=== PATIENT | male | born 1955 | race Caucasian/White ===

== ENCOUNTER 2018-10-25 14:04 | Emergency (ER) | payer BC, MEDICARE, OTHER ==
[~2018-10-25] VITALS: Ht 182.9 cm; Wt 80.7 kg
[~2018-10-25 14:04] MED LIST: Oxycodone Hcl/Acetaminophen PO
--- NOTE | 2018-10-25 14:24 | PHYS DOC ---
Past Medical History Past Medical History: No Pertinent History Past Surgical History: Other Additional Past Surgical Histo: colonoscopy Alcohol Use: Rarely Drug Use: None Adult General Chief Complaint Chief Complaint: LOWER EXTREMITY SWELLING HPI HPI Patient is a 63 year old male with history of smoking who presents today complaining of tightness to the left calf that his had for the last 6 days. Patient denies any known injury, patient denies any recent hospitalization, denies any use of hormones, denies any shortness of breath. Patient states he works at [employer] two of his work mates are off work due to medical reasons and he has hard to do more work including alot more walking and that seems to trigger the tightness in his left calf. Patient states symptoms are relieved when he is not moving as much. He states he went to urgent care and they sent him to the ED. Denies any personal family history of DVTs. Review of Systems Review of Systems Constitutional: Denies fever or chills [] Eyes: Denies change in visual acuity, redness, or eye pain [] HENT: Denies nasal congestion or sore throat [] Respiratory: Denies cough or shortness of breath [] Cardiovascular: No additional information not addressed in HPI [] GI: Denies abdominal pain, nausea, vomiting, bloody stools or diarrhea [] : Denies dysuria or hematuria [] Musculoskeletal: Reports left calf tightness Integument: Denies rash or skin lesions [] Neurologic: Denies headache, focal weakness or sensory changes [] All other systems were reviewed and found to be within normal limits, except as documented in this note. Allergies Allergies Allergies Coded Allergies Type Severity Reaction Last Updated Verified Penicillins Allergy Intermediate 04/13/14 No Physical Exam Physical Exam Constitutional: Well developed, well nourished, no acute distress, non-toxic appearance. [] HENT: Normocephalic, atraumatic, bilateral external ears normal, oropharynx moist, no oral exudates, nose normal. [] Eyes: PERRLA, EOMI, conjunctiva normal, no discharge. [] Neck: Normal range of motion, no tenderness, supple, no stridor. [] Cardiovascular:Heart rate regular rhythm, no murmur [] Lungs & Thorax: Bilateral breath sounds clear to auscultation [] Abdomen: Bowel sounds normal, soft, no tenderness, no masses, no pulsatile masses. [] Skin: Warm, dry, no erythema, no rash. [] Back: No tenderness, no CVA tenderness. [] Extremities: Bilateral lower extremities with no obvious deformity, no difference in calf size between the left and right side. Left calf with no redness no warmth, negative Homans sign to the left lower extremity. Full range of motion to the left lower extremity. +2 bilateral pedal pulses. Cap refill less than 2 seconds bilateral pulses. Neurologic: Alert and oriented X 3, normal motor function, normal sensory function, no focal deficits noted. [] Psychologic: Affect normal, judgement normal, mood normal. [] Current Patient Data Vital Signs Vital Signs Date Time Temp Pulse Resp B/P (MAP) Pulse Ox O2 Delivery O2 Flow Rate FiO2 10/25/18 16:00 76 18 139/71 (93) 100 Room Air 10/25/18 14:22 98.4 98.4 Lab Values Laboratory Tests Test 10/25/18 14:34 White Blood Count 8.2 x10^3/uL (4.0-11.0) Red Blood Count 4.56 x10^6/uL (4.30-5.70) Hemoglobin 15.4 g/dL (13.0-17.5) Hematocrit 44.6 % (39.0-53.0) Mean Corpuscular Volume 98 fL (79-100) Mean Corpuscular Hemoglobin 34 pg (25-35) Mean Corpuscular Hemoglobin Concent 35 g/dL (31-37) Red Cell Distribution Width 13.3 % (11.5-14.5) Platelet Count 180 x10^3/uL (140-400) Neutrophils (%) (Auto) 72 % (31-73) Lymphocytes (%) (Auto) 16 % (24-48) L Monocytes (%) (Auto) 10 % (0-9) H Eosinophils (%) (Auto) 1 % (0-3) Basophils (%) (Auto) 1 % (0-3) Neutrophils # (Auto) 5.9 x10^3uL (1.8-7.7) Lymphocytes # (Auto) 1.3 x10^3/uL (1.0-4.8) Monocytes # (Auto) 0.9 x10^3/uL (0.0-1.1) Eosinophils # (Auto) 0.1 x10^3/uL (0.0-0.7) Basophils # (Auto) 0.1 x10^3/uL (0.0-0.2) Sodium Level 139 mmol/L (136-145) Potassium Level 4.1 mmol/L (3.5-5.1) Chloride Level 107 mmol/L (98-107) Carbon Dioxide Level 25 mmol/L (21-32) Anion Gap 7 (6-14) Blood Urea Nitrogen 21 mg/dL (8-26) Creatinine 1.3 mg/dL (0.7-1.3) Estimated GFR (Cockcroft-Gault) 55.4 Glucose Level 100 mg/dL (70-99) H Calcium Level 9.1 mg/dL (8.5-10.1) GU-Ttl-Y-Type Natriuretic Peptide 73 pg/mL (0-124) Laboratory Tests 10/25/18 14:34 Laboratory Tests 10/25/18 14:34 EKG EKG [] Radiology/Procedures Radiology/Procedures []PROCEDURE: VENOUS LOWER EXTREMITY LEFT Left lower extremity venous Doppler ultrasound History: DX: Left leg pain x 6 days (lateral Calf pain) Comparison: None. Procedure: Color flow Doppler, Doppler spectral analysis, and 2D images are obtained with and without compression in the area of the common femoral vein, superficial femoral vein - femoral vein junction, main femoral vein (superficial femoral vein) and popliteal vein. Veins of the proximal calf are also imaged. Findings: There is normal color flow, augmentation, and compressibility of all visualized vein segments. No evidence of deep venous thrombus is present. IMPRESSION: No evidence of left lower extremity deep venous thrombosis. Electronically signed by: Simone Hayes MD (10/25/2018 2:43 PM) [facility] DICTATED and SIGNED BY: SIMONE HAYES MD DATE: 10/25/18 1442 Course & Med Decision Making Course & Med Decision Making Pertinent Labs and Imaging studies reviewed. (See chart for details) This is a 63-year-old male patient presenting to the ED today complaining of tightness to his left calf that has been going on for 6 days, no known injury but states he has had to work her harder especially walking during work because several work mates are out due to illness. Patient is employed at the [employer]. Patient has history of smoking, advised to consider smoking cessation. CBC, BMP with no acute findings, BNP-73, venous Doppler of the left lower extremity is negative for any acute findings. Vitals on arrival to the ED temperature 98.4 heart rate 80. Respirations 16 on room air blood pressure 147/ 76 O2 sats 99%. Patient is in no distress. Among differentials include sprained or strained LLE , overuse syndrome LLE, PVD though he is neurovascularly intact. Patient was discharged with a work note for 3 days per his request. Ice elevation encouraged. Given prescription for Voltaren. Follow-up with PCP in one week Staff Physician Addendum: I was working in the ER during the course of this patient's visit. I was available for consultation as needed, but I was not directly involved in the care of this patient. Dragon Disclaimer Dragon Disclaimer This electronic medical record was generated, in whole or in part, using a voice recognition dictation system. Departure Departure Impression: Primary Impression: Smoking addiction Additional Impression: Strain of calf muscle Disposition: HOME, SELF-CARE Condition: STABLE (11) Referrals: NO PCP (PCP) follow up in one week ADOLFO MAYFIELD MD Patient Instructions: Muscle Strain, [id number], Smoking Cessation Additional Instructions: You were evaluated in the emergency room for left Calf tightness. Try to rest, ice the affected extremity, keep it elevated as tolerated. Use the prescribed medications as ordered. Follow-up with your doctor or the provided specialist in 1-2 weeks. Scripts Diclofenac Sodium (VOLTAREN) 100 Gm Gel..gram. 1 GM TP QID, #100 GM 2 Refills Prov: MANUEL POWELL APRN 10/25/18 Problem Qualifiers Additional Impression: Strain of calf muscle Encounter type: initial encounter Laterality: left Qualified Codes: S86.812A - Strain of other muscle(s) and tendon(s) at lower leg level, left leg , initial encounter MANUEL POWELL APRN Oct 25, 2018 14:24 JENNY MASSEY MD Oct 25, 2018 17:57
[2018-10-25 14:44] LABS: BASO # 0.1 x10^3/uL (0.0-0.2); BASO % 1 % (0-3); EOS # 0.1 x10^3/uL (0.0-0.7); EOS % 1 % (0-3); HEMATOCRIT 44.6 % (39.0-53.0); HEMOGLOBIN 15.4 g/dL (13.0-17.5); LYMPH # 1.3 x10^3/uL (1.0-4.8); LYMPH % 16 % (24-48); MEAN CORPUSCULAR HEMOGLOBIN 34 pg (25-35); MEAN CORPUSCULAR HGB CONC 35 g/dL (31-37); MEAN CORPUSCULAR VOLUME 98 fL (79-100); MONO # 0.9 x10^3/uL (0.0-1.1); MONO % 10 % (0-9); NEUT # 5.9 x10^3uL (1.8-7.7); NEUT % 72 % (31-73); PLATELET COUNT 180 x10^3/uL (140-400); RED BLOOD COUNT 4.56 x10^6/uL (4.30-5.70); RED CELL DISTRIBUTION WIDTH 13.3 % (11.5-14.5); WHITE BLOOD COUNT 8.2 x10^3/uL (4.0-11.0)
--- NOTE | 2018-10-25 14:47 | RAD ---
Left lower extremity venous Doppler ultrasound History: DX: Left leg pain x 6 days (lateral Calf pain) Comparison: None. Procedure: Color flow Doppler, Doppler spectral analysis, and 2D images are obtained with and without compression in the area of the common femoral vein, superficial femoral vein - femoral vein junction, main femoral vein (superficial femoral vein) and popliteal vein. Veins of the proximal calf are also imaged. Findings: There is normal color flow, augmentation, and compressibility of all visualized vein segments. No evidence of deep venous thrombus is present. IMPRESSION: No evidence of left lower extremity deep venous thrombosis. Electronically signed by: Simone Hayes MD (10/25/2018 2:43 PM) [facility]
[2018-10-25 15:00] LABS: CALCIUM 9.1 mg/dL (8.5-10.1); CREATININE 1.3 mg/dL (0.7-1.3); GFR 55.4; POTASSIUM 4.1 mmol/L (3.5-5.1)
[2018-10-25] MEDS ORDERED: DICL100G18 TP (15:38)
[2018-10-25 16:00] VITALS: BP 139/71
== END 2018-10-25 16:13 | disposition home or self-care (01) ==
LOC: ER 14:04
DX: S86.812A Strain of other muscle(s) and tendon(s) at lower leg level, left leg, initial encounter (principal); Z87.891 Personal history of nicotine dependence; Z88.0 Allergy status to penicillin; X50.9XXA Other and unspecified overexertion or strenuous movements or postures, initial encounter; Y93.89 Activity, other specified; Y92.89 Other specified places as the place of occurrence of the external cause; Y99.0 Civilian activity done for income or pay
CPT/HCPCS: 36415; 80048; 83880; 85025; 93971; 99284

== ENCOUNTER 2021-06-14 07:15 | Inpatient (IN) | payer MEDICARE, BC ==
[~2021-06-14] VITALS: Ht 182.9 cm; Wt 90.9 kg
[~2021-06-14 07:15] MED LIST changes: +DICL100G54 TP
[2021-06-14] MEDS ORDERED: ACETAMINOPHEN 500 MG TABLET PO ONE (07:30)
[2021-06-14] MEDS ORDERED: IV NORMAL SALINE 1000ML BAG 1,000 ML IV ONE (07:30)
[2021-06-14 07:53] LABS: BASO # 0.1 x10^3/uL (0.0-0.2); BASO % 0 % (0-3); EOS % 0 % (0-3); HEMATOCRIT 43.7 % (39.0-53.0); HEMOGLOBIN 15.3 g/dL (13.0-17.5); LYMPH # 1.1 x10^3/uL (1.0-4.8); LYMPH % 8 % (24-48); MEAN CORPUSCULAR HEMOGLOBIN 34 pg (25-35); MEAN CORPUSCULAR HGB CONC 35 g/dL (31-37); MEAN CORPUSCULAR VOLUME 97 fL (79-100); MONO # 0.4 x10^3/uL (0.0-1.1); MONO % 3 % (0-9); NEUT # 11.9 x10^3/uL (1.8-7.7); NEUT % 88 % (31-73); PLATELET COUNT 191 x10^3/uL (140-400); RED BLOOD COUNT 4.53 x10^6/uL (4.30-5.70); RED CELL DISTRIBUTION WIDTH 13.6 % (11.5-14.5); WHITE BLOOD COUNT 13.4 x10^3/uL (4.0-11.0)
[2021-06-14] MEDS ORDERED: ONDANSETRON PF 4 MG/2 ML VIAL. IVP ONE (08:00)
[2021-06-14] MEDS ORDERED: VANCOMYCIN PER PHARMACY MC PRN ×2 (08:00→11:30)
[2021-06-14] MEDS ORDERED: VANCOMYCIN 1.5 GM in IV NORMAL SALINE 500ML BAG 500 ML IV ONE (08:00)
[2021-06-14 08:01] LABS: CREATININE 1.9 mg/dL (0.7-1.3); GFR 35.4; POTASSIUM 4.9 mmol/L (3.5-5.1)
--- NOTE | 2021-06-14 08:04 | PHYS DOC ---
Past Medical History Past Medical History: Pancreatitis Past Surgical History: Appendectomy, Tonsillectomy, Other Additional Past Surgical Histo: colonoscopy Smoking Status: Current Every Day Smoker Alcohol Use: Rarely Drug Use: None General Adult EDM: Chief Complaint: NAUSEA/VOMITING/DIARRHEA HPI: HPI: 66-year-old male presents to the emergency department with various complaints including fever, chills, fatigue, cough, nausea, vomiting, diarrhea for the past 24 hours which have been getting worse. He reports 11 episodes of vomiting and diarrhea that has been nonbloody and nonbilious. The patient endorses a fever since this morning that he has not treated at home. He has been vaccinated for COVID-19, denies any obvious sick contacts. He also states that he feels extremely nauseated, very thirsty and dehydrated. He does admit to some shortness of breath. The patient denies chest pain, abdominal pain, urinary sy mptoms, recent trauma, or any other complaints. He does have a penicillin allergy, which she describes as syncope. Review of Systems: Review of Systems: Constitutional: Admits to fever and chills. Eyes: Denies change in vision, pain. HENT: Denies congestion or sore throat. Respiratory: Admits to cough and shortness of. Cardiovascular: Denies chest pain or edema. GI: Admits to nausea vomiting diarrhea, denies abdominal pain. : Denies change in urination, dysuria. Musculoskeletal: Denies extremity pain, or trauma. Skin: Denies rash, skin change. Neurologic: Denies headache, focal weakness. Psychiatric: Denies depression or anxiety. All other systems reviewed as negative except for what was mentioned in the HPI. Heart Score: C/O Chest Pain: No Current Medications: Current Medications Medications (Trade) Dose Ordered Sig/[facility] Start Time Stop Time Status Last Admin Dose Admin Acetaminophen (Tylenol) 1,000 mg 1X ONCE 06/14/21 07:30 06/14/21 07:34 DC Levofloxacin/ Dextrose 150 ml @ 100 mls/hr 1X ONCE 06/14/21 08:00 06/14/21 09:29 Sodium Chloride 1,000 ml @ 2,000 mls/hr 1X ONCE 06/14/21 07:30 06/14/21 07:59 Vancomycin HCl (Vanco Per Pharmacy) 1 each PRN DAILY PRN 06/14/21 08:00 UNV Allergies: Allergies: Allergies Coded Allergies Type Severity Reaction Last Updated Verified Penicillins Allergy Intermediate 04/13/14 No Physical Exam: PE: Constitutional: No acute distress, ill appearance. Febrile to touch. HENT: Atraumatic, bilateral external ears normal, nose normal. Eyes: PERRLA, EOMI, conjunctiva normal, no discharge. Neck: Normal range of motion, supple, no stridor. Cardiovascular: Heart rate regular rhythm. 2+ radial pulses Lungs & Thorax: No respiratory distress, symmetrical expansion. Bilateral breath sounds clear to auscultation Skin: Warm, dry. Extremities: No tenderness, no cyanosis, ROM intact, no edema. Neurologic: Alert and oriented X 3, normal motor function, normal sensory function, no focal deficits noted. Non ataxic gait. GCS 15. Psychologic: Affect normal, judgment normal, mood normal. Current Patient Data: Labs: Laboratory Tests Test 06/14/21 07:38 06/14/21 07:39 White Blood Count 13.4 x10^3/uL (4.0-11.0) Red Blood Count 4.53 x10^6/uL (4.30-5.70) Hemoglobin 15.3 g/dL (13.0-17.5) Hematocrit 43.7 % (39.0-53.0) Mean Corpuscular Volume 97 fL (79-100) Mean Corpuscular Hemoglobin 34 pg (25-35) Mean Corpuscular Hemoglobin Concent 35 g/dL (31-37) Red Cell Distribution Width 13.6 % (11.5-14.5) Platelet Count 191 x10^3/uL (140-400) Neutrophils (%) (Auto) 88 % (31-73) Lymphocytes (%) (Auto) 8 % (24-48) Monocytes (%) (Auto) 3 % (0-9) Eosinophils (%) (Auto) 0 % (0-3) Basophils (%) (Auto) 0 % (0-3) Neutrophils # (Auto) 11.9 x10^3/uL (1.8-7.7) Lymphocytes # (Auto) 1.1 x10^3/uL (1.0-4.8) Monocytes # (Auto) 0.4 x10^3/uL (0.0-1.1) Eosinophils # (Auto) 0.0 x10^3/uL (0.0-0.7) Basophils # (Auto) 0.1 x10^3/uL (0.0-0.2) Sodium Level 142 mmol/L (136-145) Potassium Level 4.9 mmol/L (3.5-5.1) Chloride Level 108 mmol/L (98-107) Carbon Dioxide Level 22 mmol/L (21-32) Anion Gap 12 (6-14) Blood Urea Nitrogen 18 mg/dL (8-26) Creatinine 1.9 mg/dL (0.7-1.3) Estimated GFR (Cockcroft-Gault) 35.4 BUN/Creatinine Ratio 9 (6-20) Glucose Level 158 mg/dL (70-99) Lactic Acid Level 2.2 mmol/L (0.4-2.0) Calcium Level 9.0 mg/dL (8.5-10.1) Total Bilirubin 0.6 mg/dL (0.2-1.0) Aspartate Amino Transf (AST/SGOT) 49 U/L (15-37) Alanine Aminotransferase (ALT/SGPT) 68 U/L (16-63) Alkaline Phosphatase 79 U/L (46-116) Total Protein 7.4 g/dL (6.4-8.2) Albumin 3.6 g/dL (3.4-5.0) Albumin/Globulin Ratio 0.9 (1.0-1.7) Lipase 306 U/L (73-393) Influenza Type A Antigen Negative (NEGATIVE) Influenza Type B Antigen Negative (NEGATIVE) SARS-CoV-2 Antigen (Rapid) Negative (NEGATIVE) Vital Signs: Vital Signs Date Time Temp Pulse Resp B/P (MAP) Pulse Ox O2 Delivery O2 Flow Rate FiO2 06/14/21 07:24 103.1 114 24 168/82 (93) 98 Room Air 103.1 EKG: EKG: Sinus tachycardia rate of 110, no ST-T wave changes, no ectopic beats, normal axis, normal AL, QRS, and QTc intervals. Impression: Sinus tachycardia, no STEMI. Interpreted by meJenny D.O. Radiology/Procedures: Radiology/Procedures: PROCEDURE: CHEST AP ONLY XR CHEST 1V History: Reason: COUGH / Spl. Instructions: / History: Comparison: None. Findings: Right upper lobe consolidation. No pleural effusion. No pneumothorax. Normal heart size. Impression: 1. Right upper lobe consolidation, concerning for pneumonia. Recommend follow- up to ensure resolution. Electronically signed by: Jose Sanchez DO (06/14/2021 8:07 AM) Course & Med Decision Making: Course & Med Decision Making Patient with obvious fever on exam, tachycardia, and vague nonspecific viral type symptoms despite being vaccinated for COVID-19. Sepsis bundle was initiated including lactic acid, blood cultures, fluids. Patient was also given antipyretic (Tylenol), nausea medication for symptom relief. Labs acquired. EKG obtained. Antibiotics were ordered. Patient was given Levaquin, vancomycin due to penicillin allergy. Chest x-ray appears to have a right upper lobe consolidation consistent with pneumonia which fits his clinical presentation. Patient reassessed at 0830, capillary refill unchanged, heart rate down to 110. Patient still complains of thirst and was given a jug of water to drink. Disclosed disposition of admission to the patient who is amenable to this plan. Patient will be admitted to the hospitalist Dr. Beckman. Patient placed on NC for comfort. Departure Departure Impression: Primary Impression: Sepsis due to pneumonia Disposition: ADMITTED INPATIENT Admitting Physician: RUTH (Karuna) Condition: STABLE Referrals: FELECIA SWANN MD (PCP) JENNY RUBIO DO Jun 14, 2021 08:03
[2021-06-14 08:07] LABS: ALBUMIN 3.6 g/dL (3.4-5.0); ALBUMIN/GLOBULIN RATIO 0.9 (1.0-1.7); TOTAL BILIRUBIN 0.6 mg/dL (0.2-1.0); TOTAL PROTEIN 7.4 g/dL (6.4-8.2)
--- NOTE | 2021-06-14 08:10 | RAD ---
XR CHEST 1V History: Reason: COUGH / Spl. Instructions: / History: Comparison: None. Findings: Right upper lobe consolidation. No pleural effusion. No pneumothorax. Normal heart size. Impression: 1. Right upper lobe consolidation, concerning for pneumonia. Recommend follow-up to ensure resolutio n. Electronically signed by: Jose Sanchez DO (06/14/2021 8:07 AM) [id number]
[2021-06-14 08:16] LABS: INFLUENZA A PATIENT NEGATIVE (NEGATIVE); INFLUENZA B PATIENT NEGATIVE (NEGATIVE)
[2021-06-14 08:29] LABS: BILIRUBIN,URINE NEGATIVE (NEG); CLARITY,URINE CLEAR; COLOR,URINE YELLOW; NITRITE,URINE NEGATIVE (NEG); PROTEIN,URINE NEGATIVE (NEG-TRACE); UROBILINOGEN,URINE 0.2 mg/dL (0.2 mg/dL)
[2021-06-14 08:32] LABS: % BANDS 9 % (0-9); % LYMPHS 7 % (24-48); % MONOS 3 % (0-10); % SEGS 81 % (35-66); PLT ESTIMATE ADEQUATE (ADEQUATE)
[2021-06-14 08:37] LABS: BACTERIA,URINE 0 /HPF (0-FEW); WBC,URINE OCC /HPF (0-4)
--- NOTE | 2021-06-14 09:09 | PDOC1 ---
History and Physical Date of Admission Date of Admission DATE: 06/14/21 TIME: 09:08 Identification/Chief Complaint Chief Complaint sob, fever, cough onset today History of Present Illness History of Present Illness 66-year-old male presented to the emergency department with symptoms including fever, chills, fatigue, cough, nausea, vomiting, diarrhea for the past 24 hours which have been getting worse. 11 episodes of vomiting and diarrhea that has been nonbloody and nonbilious. noted fever since this morning that he has not treated at home. was vaccinated for COVID-19, states that he feels extremely nauseated, very thirsty and dehydrated. cxr c/w rul infiltrate some shortness of breath. stopped smoking last year denies chest pain, abdominal pain, urinary symptoms, recent trauma, or any other complaints. penicillin allergy, which he describes as syncope. Past Medical History Past Medical History Past Medical History Past Medical History: Pancreatitis Past Surgical History: Appendectomy, Tonsillectomy, Other Additional Past Surgical Histo: colonoscopy Smoking Status: stopped 2019 Alcohol Use: Rarely Drug Use: None FHX COPD Cardiovascular: No pertinent hx Pulmonary: No pertinent hx, Bronchitis, COPD Musculoskeletal: Weakness Renal/: No pertinent hx Endocrine: No pertinent hx Dermatology: No pertinent hx Past Surgical History Past Surgical History: Other Family History Family History: High Cholestrol, Hypertension Social History Smoke: Quit ALCOHOL: rare Drugs: None Current Problem List Problem List Problems Medical Problems: (1) Sepsis due to pneumonia Status: Acute Current Medications Current Medications Current Medications Acetaminophen (Tylenol) 1,000 mg 1X ONCE PO Last administered on 06/14/21at 08:09; Start 06/14/21 at 07:30; Stop 06/14/21 at 07:34; Status DC Sodium Chloride 1,000 ml @ 2,000 mls/hr 1X ONCE IV Last administered on 06/14/21at 08:10; Start 06/14/21 at 07:30; Stop 06/14/21 at 07:59; Status DC Levofloxacin/ Dextrose 150 ml @ 100 mls/hr 1X ONCE IV Last administered on 06/14/21at 08:10; Start 06/14/21 at 08:00; Stop 06/14/21 at 09:29 Vancomycin HCl (Vanco Per Pharmacy) 1 each PRN DAILY PRN MC SEE COMMENTS; Start 06/14/21 at 08:00 Vancomycin HCl 1.5 gm/Sodium Chloride 500 ml @ 250 mls/hr 1X ONCE IV ; Start 06/14/21 at 08:00; Stop 06/14/21 at 09:59 Ondansetron HCl (Zofran) 4 mg 1X ONCE IVP Last administered on 06/14/21at 08:07; Start 06/14/21 at 08:00; Stop 06/14/21 at 08:01; Status DC Active Scripts Active Voltaren (Diclofenac Sodium) 100 Gm Gel..gram. 1 Gm TP QID Reported No Known Medications Prior To Admisstion (Info) Each 1 Each Allergies Allergies: Coded Allergies: Penicillins (Unverified Allergy, Intermediate, 04/13/14) ROS General: YES: Chills, Fatigue, Malaise, Appetite PSYCHOLOGICAL ROS: No: Anxiety, Behavioral Disorder, Concentration difficultie, Decreased libido, Depression, Disorientation, Hallucinations, Hostility, Irritablity, Memory difficulties, Mood Swings, Obsessive thoughts, Physical abuse, Sexual abuse, Sleep disturbances, Suicidal ideation, Other Eyes: No Blurry vision, No Decreased vision, No Double vision, No Dry eyes, No Excessive tearing, No Eye Pain, No Itchy Eyes, No Loss of vision, No Photophobia, No Scotomata, No Uses contacts, No Uses glasses, No Other HEENT: No: Heacaches, Visual Changes, Hearing change, Nasal congestion, Nasal discharge, Oral lesions, Sinus pain, Sore Throat, Epistaxis, Sneezing, Snoring, Tinnitus, Vertigo, Vocal changes, Other ALLERGY AND IMMUNOLOGY: YES: Hives; No: Insect Bite Sensitivity, Itchy/Watery Eyes, Nasal Congestion, Post Nasal Drip, Seasonal Allergies, Other Hematological and Lymphatic: No: Bleeding Problems, Blood Clots, Blood Transfusions, Brusing, Night Sweats, Pallor, Swollen Lymph Nodes, Other ENDOCRINE: No: Breast Changes, Galactorrhea, Hair Pattern Changes, Hot Flashes, Malaise/lethargy, Mood Swings, Palpitations, Polydipsia/polyuria, Skin Changes, Temperature Intolerance, Unexpected Weight Changes, Other Breast: No New/Changing Breast Lumps, No Nipple changes, No Nipple discharge, No Other Respiratory: YES: Cough, Shortness of breath, SOB with excertion, Sputum Changes; No: Hemoptysis, Orthopnea, Pleuritic Pain, Stridor, Tachypnea, Wheezing, Other Cardiovascular: No Chest Pain, No Palpitations, No Orthopnea, No Paroxysmal Noc. Dyspnea, No Edema, No Lt Headedness, No Other Gastrointestinal: Yes Nausea, Yes Vomiting; No Abdominal Pain, No Diarrhea, No Constipation, No Melena, No Hematochezia, No Other Genitourinary: YES Frequency; No Dysuria, No Incontinence, No Hematuria, No Retention, No Discharge, No Urgency, No Pain, No Flank Pain, No Other, No , No , No , No , No , No , No Musculoskeletal: No Gait Disturbance, No Joint Pain, No Joint Stiffness, No Joint Swelling, No Muscle Pain, No Muscular Weakness, No Pain In:, No Swelling In:, No Other Neurological: No Behavorial Changes, No Bowel/Bladder ControlChng, No Confusion, No Dizziness, No Gait Disturbance, No Headaches, No Impaired Coord/balance, No Memory Loss, No Numbness/Tingling, No Seizures, No Speech Problems, No Tremors, No Visual Changes, No Weakness, No Other Skin: Yes Dry Skin; No Eczema, No Hair Changes, No Lumps, No Mole Changes, No Mottling, No Nail Changes, No Pruritus, No Rash, No Skin Lesion Changes, No Other, No Acne Physical Exam Physical Exam HENT: Atraumatic, bilateral external ears normal, nose normal. Eyes: PERRLA, EOMI, conjunctiva normal, no discharge. Neck: Normal range of motion, supple, no stridor. Cardiovascular: Heart rate regular rhythm. 2+ radial pulses Lungs & Thorax: No respiratory distress, symmetrical expansion. Bilateral breath sounds clear to auscultation Skin: Warm, dry. Extremities: No tenderness, no cyanosis, ROM intact, no edema. Neurologic: Alert and oriented X 3, normal motor function, normal sensory function, no focal deficits noted. Non ataxic gait. GCS 15. Psychologic: Affect normal, judgment normal, mood normal. General: Alert, Oriented X3, Cooperative, mild distress HEENT: EOMI, Mucous membr. moist/pink Lungs: Other (rul crackles) Heart: RRR Breasts: Not examined Abdomen: Normal bowel sounds, Soft, Other (obese) PELVIC: Examination not indicated Extremities: No cyanosis Neuro: Normal speech, Strength at 5/5 X4 ext, Cranial nerves 3-12 NL Psych/Mental Status: Mental status NL, Mood NL Vitals Vitals Vital Signs Date Time Temp Pulse Resp B/P (MAP) Pulse Ox O2 Delivery O2 Flow Rate FiO2 06/14/21 08:32 112 20 121/61 (81) 91 Room Air 06/14/21 07:24 103.1 103.1 Labs Labs Laboratory Tests Test 06/14/21 07:38 06/14/21 07:39 06/14/21 08:20 White Blood Count 13.4 x10^3/uL (4.0-11.0) Red Blood Count 4.53 x10^6/uL (4.30-5.70) Hemoglobin 15.3 g/dL (13.0-17.5) Hematocrit 43.7 % (39.0-53.0) Mean Corpuscular Volume 97 fL (79-100) Mean Corpuscular Hemoglobin 34 pg (25-35) Mean Corpuscular Hemoglobin Concent 35 g/dL (31-37) Red Cell Distribution Width 13.6 % (11.5-14.5) Platelet Count 191 x10^3/uL (140-400) Neutrophils (%) (Auto) 88 % (31-73) Lymphocytes (%) (Auto) 8 % (24-48) Monocytes (%) (Auto) 3 % (0-9) Eosinophils (%) (Auto) 0 % (0-3) Basophils (%) (Auto) 0 % (0-3) Neutrophils # (Auto) 11.9 x10^3/uL (1.8-7.7) Lymphocytes # (Auto) 1.1 x10^3/uL (1.0-4.8) Monocytes # (Auto) 0.4 x10^3/uL (0.0-1.1) Eosinophils # (Auto) 0.0 x10^3/uL (0.0-0.7) Basophils # (Auto) 0.1 x10^3/uL (0.0-0.2) Segmented Neutrophils % 81 % (35-66) Band Neutrophils % 9 % (0-9) Lymphocytes % 7 % (24-48) Monocytes % 3 % (0-10) Platelet Estimate Adequate (ADEQUATE) Sodium Level 142 mmol/L (136-145) Potassium Level 4.9 mmol/L (3.5-5.1) Chloride Level 108 mmol/L (98-107) Carbon Dioxide Level 22 mmol/L (21-32) Anion Gap 12 (6-14) Blood Urea Nitrogen 18 mg/dL (8-26) Creatinine 1.9 mg/dL (0.7-1.3) Estimated GFR (Cockcroft-Gault) 35.4 BUN/Creatinine Ratio 9 (6-20) Glucose Level 158 mg/dL (70-99) Lactic Acid Level 2.2 mmol/L (0.4-2.0) Calcium Level 9.0 mg/dL (8.5-10.1) Total Bilirubin 0.6 mg/dL (0.2-1.0) Aspartate Amino Transf (AST/SGOT) 49 U/L (15-37) Alanine Aminotransferase (ALT/SGPT) 68 U/L (16-63) Alkaline Phosphatase 79 U/L (46-116) Total Protein 7.4 g/dL (6.4-8.2) Albumin 3.6 g/dL (3.4-5.0) Albumin/Globulin Ratio 0.9 (1.0-1.7) Lipase 306 U/L (73-393) Influenza Type A Antigen Negative (NEGATIVE) Influenza Type B Antigen Negative (NEGATIVE) SARS-CoV-2 Antigen (Rapid) Negative (NEGATIVE) Urine Collection Type Void Urine Color Yellow Urine Clarity Clear Urine pH 5.0 (<5.0-8.0) Urine Specific [place] 1.010 (1.000-1.030) Urine Protein Negative mg/dL (NEG-TRACE) Urine Glucose (UA) Negative mg/dL (NEG) Urine Ketones (Stick) Negative mg/dL (NEG) Urine Blood Negative (NEG) Urine Nitrite Negative (NEG) Urine Bilirubin Negative (NEG) Urine Urobilinogen Dipstick 0.2 mg/dL (0.2 mg/dL) Urine Leukocyte Esterase Negative (NEG) Urine RBC 1-2 /HPF (0-2) Urine WBC Occ /HPF (0-4) Urine Bacteria 0 /HPF (0-FEW) Laboratory Tests Test 06/14/21 07:38 06/14/21 07:39 06/14/21 08:20 White Blood Count 13.4 x10^3/uL (4.0-11.0) Red Blood Count 4.53 x10^6/uL (4.30-5.70) Hemoglobin 15.3 g/dL (13.0-17.5) Hematocrit 43.7 % (39.0-53.0) Mean Corpuscular Volume 97 fL (79-100) Mean Corpuscular Hemoglobin 34 pg (25-35) Mean Corpuscular Hemoglobin Concent 35 g/dL (31-37) Red Cell Distribution Width 13.6 % (11.5-14.5) Platelet Count 191 x10^3/uL (140-400) Neutrophils (%) (Auto) 88 % (31-73) Lymphocytes (%) (Auto) 8 % (24-48) Monocytes (%) (Auto) 3 % (0-9) Eosinophils (%) (Auto) 0 % (0-3) Basophils (%) (Auto) 0 % (0-3) Neutrophils # (Auto) 11.9 x10^3/uL (1.8-7.7) Lymphocytes # (Auto) 1.1 x10^3/uL (1.0-4.8) Monocytes # (Auto) 0.4 x10^3/uL (0.0-1.1) Eosinophils # (Auto) 0.0 x10^3/uL (0.0-0.7) Basophils # (Auto) 0.1 x10^3/uL (0.0-0.2) Segmented Neutrophils % 81 % (35-66) Band Neutrophils % 9 % (0-9) Lymphocytes % 7 % (24-48) Monocytes % 3 % (0-10) Platelet Estimate Adequate (ADEQUATE) Sodium Level 142 mmol/L (136-145) Potassium Level 4.9 mmol/L (3.5-5.1) Chloride Level 108 mmol/L (98-107) Carbon Dioxide Level 22 mmol/L (21-32) Anion Gap 12 (6-14) Blood Urea Nitrogen 18 mg/dL (8-26) Creatinine 1.9 mg/dL (0.7-1.3) Estimated GFR (Cockcroft-Gault) 35.4 BUN/Creatinine Ratio 9 (6-20) Glucose Level 158 mg/dL (70-99) Lactic Acid Level 2.2 mmol/L (0.4-2.0) Calcium Level 9.0 mg/dL (8.5-10.1) Total Bilirubin 0.6 mg/dL (0.2-1.0) Aspartate Amino Transf (AST/SGOT) 49 U/L (15-37) Alanine Aminotransferase (ALT/SGPT) 68 U/L (16-63) Alkaline Phosphatase 79 U/L (46-116) Total Protein 7.4 g/dL (6.4-8.2) Albumin 3.6 g/dL (3.4-5.0) Albumin/Globulin Ratio 0.9 (1.0-1.7) Lipase 306 U/L (73-393) Influenza Type A Antigen Negative (NEGATIVE) Influenza Type B Antigen Negative (NEGATIVE) SARS-CoV-2 Antigen (Rapid) Negative (NEGATIVE) Urine Collection Type Void Urine Color Yellow Urine Clarity Clear Urine pH 5.0 (<5.0-8.0) Urine Specific [place] 1.010 (1.000-1.030) Urine Protein Negative mg/dL (NEG-TRACE) Urine Glucose (UA) Negative mg/dL (NEG) Urine Ketones (Stick) Negative mg/dL (NEG) Urine Blood Negative (NEG) Urine Nitrite Negative (NEG) Urine Bilirubin Negative (NEG) Urine Urobilinogen Dipstick 0.2 mg/dL (0.2 mg/dL) Urine Leukocyte Esterase Negative (NEG) Urine RBC 1-2 /HPF (0-2) Urine WBC Occ /HPF (0-4) Urine Bacteria 0 /HPF (0-FEW) Images Images PATIENT: MARIA ELENA ADAMES ACCOUNT: [id number] : 1955 LOCATION: ER AGE: 66 SEX: M EXAM STATUS: REG ER ORD. PHYSICIAN: JENNY RUBIO DO REASON: COUGH PROCEDURE: CHEST AP ONLY XR CHEST 1V History: Reason: COUGH / Spl. Instructions: / History: Comparison: None. Findings: Right upper lobe consolidation. No pleural effusion. No pneumothorax. Normal heart size. Impression: 1. Right upper lobe consolidation, concerning for pneumonia. Recommend follow- up to ensure resolution. Electronically signed by: Jose Centeno DO (06/14/2021 8:07 AM) [id number] DICTATED and SIGNED BY: JOSE CENTENO DO DATE: 06/14/21 [id number] VTE Prophylaxis Ordered VTE Prophylaxis Devices: Yes VTE Pharmacological Prophylaxi: Yes Assessment/Plan Assessment/Plan mpression: 1. Right upper lobe consolidation, c/w pneumonia possible gram neg, gram pos 2. acute hypoxis resp failure 3. COPD WITH ACUTE EXAC 4. Sepsis due to pneumonia 5. CIARA 6. HX TOBACCO ABUSE, remote 2019 cessation ADMITTED PLAN ADMIT ID CONSULT BLOOD CULT IV LEVAQUIN, d/c VANC due to ciara PENDING ID CONSULT dvt prophylaxis 'duonebs qid prn q 4 hrs NEPHROLOGY CONSULT D/W ER Justifications for Admission Other Justification KARL JIMENEZ MD Jun 14, 2021 09:09
[2021-06-14] MEDS ORDERED: ONDANSETRON PF 4 MG/2 ML VIAL. IVP PRN (09:15)
[2021-06-14] MEDS ORDERED: ACETAMINOPHEN 325 MG TABLET. PO PRN ×2 (09:15→11:30)
[2021-06-14 11:00] VITALS: BP 128/70
[2021-06-14] MEDS: IV NORMAL SALINE 1000ML BAG 1,000 ML IV SCH ×2 (11:11→21:06)
[2021-06-14] MEDS ORDERED: DOXA4TAB3 PO (11:19)
[2021-06-14] MEDS ORDERED: OMEP40CA7 PO (11:19)
[2021-06-14] MEDS ORDERED: BUTA1CAP57 PO (11:19)
[2021-06-14] MEDS ORDERED: ATOR10TA60 PO (11:19)
[2021-06-14] MEDS ORDERED: DOCUSATE SODIUM 100 MG CAPSULE. PO PRN (11:30)
[2021-06-14] MEDS ORDERED: LORazepam 0.5 MG TABLET PO PRN (11:30)
[2021-06-14] MEDS ORDERED: 0.9 % SODIUM CHLORIDE 10 ML DISP.SYRIN. IV PRN (11:30)
[2021-06-14] MEDS ORDERED: guaiFENesin ORAL 200 MG/10 ML LIQUID. PO PRN (11:30)
[2021-06-14] MEDS ORDERED: SODIUM PHOSPHATES 19/7GM 133 ML ENEMA. PR PRN (11:30)
[2021-06-14] MEDS: IPRATRPIUM/ALBUTEROL 0.5/2.5MG 3 ML NEBU. NEB SCH ×3 (11:30→15:24)
[2021-06-14] MEDS ORDERED: ONDANSETRON PF 4 MG/2 ML VIAL. IV PRN (11:30)
--- NOTE | 2021-06-14 11:37 | CONS ---
DATE OF CONSULTATION: 06/14/2021 PULMONARY CONSULTATION ATTENDING PHYSICIAN: Dr. Beckman. REASON FOR CONSULTATION: Respiratory failure, pneumonia. HISTORY OF PRESENT ILLNESS: The patient is a 66-year-old male who has smoked for 52 years before quitting in February of this year. He was brought into the hospital with complaint of vomiting at least 8-10 times in the last 24 hours. He has diarrhea as well. He had some subjective fever, chills and fatigue. He had a mild cough after he vomited. He had some shortness of breath as well. As a result, the patient was brought into the hospital. He has been vaccinated for COVID-19. He denies any recent sick contacts. The patient's chest x-ray was reviewed and it shows evidence of infiltrate involving the right upper lobe. The patient denies any history of deep vein thrombosis or pulmonary embolism. He is not on home oxygen. He does not drink alcohol. PAST MEDICAL HISTORY: Significant for history of pancreatitis, history of COPD, unknown FEV1. Smoked for 52 years. PAST SURGICAL HISTORY: Appendectomy, tonsillectomy and colonoscopy. SOCIAL HISTORY: Smoked for 52 years before quitting in February of this year. ALLERGIES: PENICILLIN. REVIEW OF SYSTEMS: A 12-point system obtained. Pertinent positives discussed in my history of present illness, otherwise noncontributory. All systems that were negative were reviewed as well. MEDICATIONS: Reviewed that were given in the ER. PHYSICAL EXAMINATION: VITAL SIGNS: Reviewed. T-max of 103.1. Blood pressure is stable, pulse ox is 96% on 2 liters. Visual exam done due to COVID-19 suspicion. No obvious respiratory distress. ABDOMEN: Obese. EXTREMITIES: With no pitting edema. LABORATORY DATA: Reviewed. White cell count 13.4, hemoglobin 15.3, platelets are 191. COVID rapid is negative. BUN 18, creatinine 1.9. AST 49, ALT 68, and lipase 306. IMPRESSION: 1. Acute hypoxic respiratory failure secondary to aspiration pneumonia involving the right upper lobe in a patient who has 52 years of tobaccoism. 2. Nausea, vomiting at least 12 times in the last 24 hours along with diarrhea and fever and chills. Needs to rule out gastrointestinal source of infection. COVID PCR is pending, rapid is negative. 2. A 52 years of tobaccoism. Likely underlying chronic obstructive pulmonary disease. 3. Acute kidney injury secondary to dehydration. 4. Abnormal liver function tests. 5. Leukocytosis. RECOMMENDATIONS: 1. Continue present oxygen, keep saturation 92 and above. 2. Obtain CT chest, abdomen and pelvis without contrast. 3. Follow GI recommendations. 4. Follow blood cultures. 5. Infectious disease consult. 6. Empiric antibiotics per Infectious Disease. 7. Followup on COVID PCR. 8. IV hydration and monitor renal function. 9. Discussed with RN. We will follow along with you. LUAN DR: Bárbara TID: [id number]
[2021-06-14] MEDS: ENOXAPARIN 40 MG/0.4 ML SYRINGE. SQ SCH (12:10)
[2021-06-14] MEDS: ATORVASTATIN CALCIUM 10 MG TABLET. PO SCH (14:29)
[2021-06-14] MEDS: DOXAZOSIN MESYLATE 4 MG TABLET. PO SCH (14:30)
--- NOTE | 2021-06-14 14:52 | RAD ---
EXAM: CT Chest, Abdomen and Pelvis without IV contrast CLINICAL HISTORY: Reason: vomitting/aspiration pna / Spl. Instructions: / History: COMPARISON: 04/13/14 TECHNIQUE: Helical CT of the chest, abdomen and pelvis was performed without intravenous contrast. Ax ial, coronal and sagittal reformatted images were generated. ---PQRS compliance statement - One or more of the following individualized dose reduction techniques were utilized for this study: 1. Automated exposure control 2. Adjustment of the mA and/or kV according to patient size 3. Use of iterative reconstruction technique--- FINDINGS: Lack of intravenous contrast limits evaluation of solid organs, vasculature, and lymph nodes. Chest: Heart is not enlarged. Coronary calcifications. No pericardial effusion. No pleural effusion. No pneumothorax. No axillary lymphadenopathy. A few mildly prominent mediastinal and hilar lymph nodes are seen, possi amy reactive. Confluent airspace opacities in the anterior right upper lobe. Background of emphysematous change. 6 mm peripheral right lower lobe lung nodule (image 50) is stable to 04/13/2014. Abdomen and Pelvis: Liver, spleen, adrenal glands and pancreas are unremarkable. Gallbladder is normal. No biliary ductal dilatation. No focal renal lesion. No hydronephrosis. No hydroureter. Bladder is unremarkable. Fat-containing left inguinal hernia is seen. Trace fat-containing periumbilical hernia. Moderate colonic stool content is seen. No small or large bowel dilatation. No bowel obstruction. Samson endix is not seen. No abdominal or pelvic ascites. Trace infrarenal aortic ectasia. Bones: Hip joint degenerative changes are seen. Degenerative changes of the lower lumbar spine. Unilateral r ight L5 pars defect is seen. IMPRESSION: 1. Airspace opacities in the right upper lobe likely consolidative process such as pneumonia. Imagin g follow-up to resolution is recommended. 2. Mildly prominent mediastinal and hilar lymph nodes may be reactive, recommend close attention on follow-up. 3. Electronically signed by: Sunil Llanes MD (06/14/2021 2:50 PM) [id number]
[2021-06-14 15:00] VITALS: BP 104/56
[2021-06-14] MEDS ORDERED: IPRATRPIUM/ALBUTEROL 0.5/2.5MG 3 ML NEBU. NEB PRN (15:30)
[2021-06-14 19:00] VITALS: BP 120/63
[2021-06-14] MEDS: MAG HYDROX/ALUMINUM HYD/SIMETH 30 ML ORAL.SUSP PO PRN (21:05)
[2021-06-14] MEDS: BUTALB/APAP/CAFEIN 50/325/40MG TABLET. PO PRN (21:05)
[2021-06-14 23:00] VITALS: BP 112/66
[2021-06-15] MEDS: IV NORMAL SALINE 1000ML BAG 1,000 ML IV SCH (01:27)
[2021-06-15 03:00] VITALS: BP 112/67
[2021-06-15] MEDS: PANTOPRAZOLE 40 MG TABLET.DR. PO SCH (05:01)
--- NOTE | 2021-06-15 06:43 | PDOC ---
PULMONARY PROGRESS NOTES DATE: 06/15/21 TIME: 06:42 Subjective Patient feels better in comparison to yesterday His lungs are sore Not more short of air Vitals Vital Signs Date Time Temp Pulse Resp B/P (MAP) Pulse Ox O2 Delivery O2 Flow Rate FiO2 06/15/21 03:00 98.4 72 18 112/67 (82) 98 Nasal Cannula 2.0 98.4 ROS: No Nausea, No Abdominal Pain, No Increase Cough General: Alert Lungs: Crackles Cardiovascular: S1, S2 Abdomen: Soft, Non-tender Neuro Exam: Alert Extremities: No Edema Skin: Warm Labs Laboratory Tests Test 06/14/21 07:38 06/14/21 07:39 06/14/21 08:20 06/14/21 11:20 White Blood Count 13.4 x10^3/uL (4.0-11.0) Red Blood Count 4.53 x10^6/uL (4.30-5.70) Hemoglobin 15.3 g/dL (13.0-17.5) Hematocrit 43.7 % (39.0-53.0) Mean Corpuscular Volume 97 fL (79-100) Mean Corpuscular Hemoglobin 34 pg (25-35) Mean Corpuscular Hemoglobin Concent 35 g/dL (31-37) Red Cell Distribution Width 13.6 % (11.5-14.5) Platelet Count 191 x10^3/uL (140-400) Neutrophils (%) (Auto) 88 % (31-73) Lymphocytes (%) (Auto) 8 % (24-48) Monocytes (%) (Auto) 3 % (0-9) Eosinophils (%) (Auto) 0 % (0-3) Basophils (%) (Auto) 0 % (0-3) Neutrophils # (Auto) 11.9 x10^3/uL (1.8-7.7) Lymphocytes # (Auto) 1.1 x10^3/uL (1.0-4.8) Monocytes # (Auto) 0.4 x10^3/uL (0.0-1.1) Eosinophils # (Auto) 0.0 x10^3/uL (0.0-0.7) Basophils # (Auto) 0.1 x10^3/uL (0.0-0.2) Segmented Neutrophils % 81 % (35-66) Band Neutrophils % 9 % (0-9) Lymphocytes % 7 % (24-48) Monocytes % 3 % (0-10) Platelet Estimate Adequate (ADEQUATE) Sodium Level 142 mmol/L (136-145) Potassium Level 4.9 mmol/L (3.5-5.1) Chloride Level 108 mmol/L (98-107) Carbon Dioxide Level 22 mmol/L (21-32) Anion Gap 12 (6-14) Blood Urea Nitrogen 18 mg/dL (8-26) Creatinine 1.9 mg/dL (0.7-1.3) Estimated GFR (Cockcroft-Gault) 35.4 BUN/Creatinine Ratio 9 (6-20) Glucose Level 158 mg/dL (70-99) Lactic Acid Level 2.2 mmol/L (0.4-2.0) 1.7 mmol/L (0.4-2.0) Calcium Level 9.0 mg/dL (8.5-10.1) Total Bilirubin 0.6 mg/dL (0.2-1.0) Aspartate Amino Transf (AST/SGOT) 49 U/L (15-37) Alanine Aminotransferase (ALT/SGPT) 68 U/L (16-63) Alkaline Phosphatase 79 U/L (46-116) Total Protein 7.4 g/dL (6.4-8.2) Albumin 3.6 g/dL (3.4-5.0) Albumin/Globulin Ratio 0.9 (1.0-1.7) Lipase 306 U/L (73-393) Influenza Type A Antigen Negative (NEGATIVE) Influenza Type B Antigen Negative (NEGATIVE) SARS-CoV-2 RNA (YOLIS) Negative (Negative) SARS-CoV-2 Antigen (Rapid) Negative (NEGATIVE) Urine Collection Type Void Urine Color Yellow Urine Clarity Clear Urine pH 5.0 (<5.0-8.0) Urine Specific [place] 1.010 (1.000-1.030) Urine Protein Negative mg/dL (NEG-TRACE) Urine Glucose (UA) Negative mg/dL (NEG) Urine Ketones (Stick) Negative mg/dL (NEG) Urine Blood Negative (NEG) Urine Nitrite Negative (NEG) Urine Bilirubin Negative (NEG) Urine Urobilinogen Dipstick 0.2 mg/dL (0.2 mg/dL) Urine Leukocyte Esterase Negative (NEG) Urine RBC 1-2 /HPF (0-2) Urine WBC Occ /HPF (0-4) Urine Bacteria 0 /HPF (0-FEW) Laboratory Tests Test 06/14/21 07:38 06/14/21 07:39 06/14/21 08:20 06/14/21 11:20 White Blood Count 13.4 x10^3/uL (4.0-11.0) Red Blood Count 4.53 x10^6/uL (4.30-5.70) Hemoglobin 15.3 g/dL (13.0-17.5) Hematocrit 43.7 % (39.0-53.0) Mean Corpuscular Volume 97 fL (79-100) Mean Corpuscular Hemoglobin 34 pg (25-35) Mean Corpuscular Hemoglobin Concent 35 g/dL (31-37) Red Cell Distribution Width 13.6 % (11.5-14.5) Platelet Count 191 x10^3/uL (140-400) Neutrophils (%) (Auto) 88 % (31-73) Lymphocytes (%) (Auto) 8 % (24-48) Monocytes (%) (Auto) 3 % (0-9) Eosinophils (%) (Auto) 0 % (0-3) Basophils (%) (Auto) 0 % (0-3) Neutrophils # (Auto) 11.9 x10^3/uL (1.8-7.7) Lymphocytes # (Auto) 1.1 x10^3/uL (1.0-4.8) Monocytes # (Auto) 0.4 x10^3/uL (0.0-1.1) Eosinophils # (Auto) 0.0 x10^3/uL (0.0-0.7) Basophils # (Auto) 0.1 x10^3/uL (0.0-0.2) Segmented Neutrophils % 81 % (35-66) Band Neutrophils % 9 % (0-9) Lymphocytes % 7 % (24-48) Monocytes % 3 % (0-10) Platelet Estimate Adequate (ADEQUATE) Sodium Level 142 mmol/L (136-145) Potassium Level 4.9 mmol/L (3.5-5.1) Chloride Level 108 mmol/L (98-107) Carbon Dioxide Level 22 mmol/L (21-32) Anion Gap 12 (6-14) Blood Urea Nitrogen 18 mg/dL (8-26) Creatinine 1.9 mg/dL (0.7-1.3) Estimated GFR (Cockcroft-Gault) 35.4 BUN/Creatinine Ratio 9 (6-20) Glucose Level 158 mg/dL (70-99) Lactic Acid Level 2.2 mmol/L (0.4-2.0) 1.7 mmol/L (0.4-2.0) Calcium Level 9.0 mg/dL (8.5-10.1) Total Bilirubin 0.6 mg/dL (0.2-1.0) Aspartate Amino Transf (AST/SGOT) 49 U/L (15-37) Alanine Aminotransferase (ALT/SGPT) 68 U/L (16-63) Alkaline Phosphatase 79 U/L (46-116) Total Protein 7.4 g/dL (6.4-8.2) Albumin 3.6 g/dL (3.4-5.0) Albumin/Globulin Ratio 0.9 (1.0-1.7) Lipase 306 U/L (73-393) Influenza Type A Antigen Negative (NEGATIVE) Influenza Type B Antigen Negative (NEGATIVE) SARS-CoV-2 RNA (YOLIS) Negative (Negative) SARS-CoV-2 Antigen (Rapid) Negative (NEGATIVE) Urine Collection Type Void Urine Color Yellow Urine Clarity Clear Urine pH 5.0 (<5.0-8.0) Urine Specific [place] 1.010 (1.000-1.030) Urine Protein Negative mg/dL (NEG-TRACE) Urine Glucose (UA) Negative mg/dL (NEG) Urine Ketones (Stick) Negative mg/dL (NEG) Urine Blood Negative (NEG) Urine Nitrite Negative (NEG) Urine Bilirubin Negative (NEG) Urine Urobilinogen Dipstick 0.2 mg/dL (0.2 mg/dL) Urine Leukocyte Esterase Negative (NEG) Urine RBC 1-2 /HPF (0-2) Urine WBC Occ /HPF (0-4) Urine Bacteria 0 /HPF (0-FEW) Medications Active Scripts Medications Dose Route/Sig Max Daily Dose Days Date Category Atorvastatin Calcium 10 Mg Tablet 10 Mg PO DAILY 06/14/21 Reported [id number] 50-300-40 (Butalb/Acetaminophen/Caffeine) 1 Each Capsule 1 Cap PO PRN Q4HRS PRN 06/14/21 Reported Doxazosin Mesylate 4 Mg Tablet 1 Tab PO DAILY 06/14/21 Reported Omeprazole 40 Mg Capsule. 1 Cap PO DAILY 06/14/21 Reported Impression . IMPRESSION: 1. Acute hypoxic respiratory failure secondary to aspiration pneumonia involving the right upper lobe in a patient who has 52 years of tobaccoism. 2. Nausea, vomiting improved 2. COPD unknown FEV1 3. Acute kidney injury secondary to dehydration. 4. Abnormal liver function tests. 5. Leukocytosis. 6. Negative SARS-CoV-[address] chest report IMPRESSION: 1. Airspace opacities in the right upper lobe likely consolidative process such as pneumonia. Imaging follow-up to resolution is recommended. 2. Mildly prominent mediastinal and hilar lymph nodes may be reactive, recommend close attention on follow-up. Plan . Updated 06/15 continue oxygen supplementation Continue empiric antibiotics IV fluids CT chest reviewed opacity right upper lobe Repeat CT chest in 2 Follow-up on blood cultures RECOMMENDATIONS: 1. Continue present oxygen, keep saturation 92 and above. 2. Obtain CT chest, abdomen and pelvis without contrast. 3. Follow GI recommendations. 4. Follow blood cultures. 5. Infectious disease consult. 6. Empiric antibiotics per Infectious Disease. 7. Followup on COVID PCR. 8. IV hydration and monitor renal function. 9. Discussed with RN. We will follow along with you. ALINA OSORIO MD Jun 15, 2021 06:43
[2021-06-15 07:00] VITALS: BP 116/73
[2021-06-15 07:32] LABS: BASO % 0 % (0-3); EOS # 0.1 x10^3/uL (0.0-0.7); EOS % 1 % (0-3); HEMATOCRIT 37.5 % (39.0-53.0); HEMOGLOBIN 12.6 g/dL (13.0-17.5); LYMPH # 1.4 x10^3/uL (1.0-4.8); LYMPH % 9 % (24-48); MEAN CORPUSCULAR HEMOGLOBIN 33 pg (25-35); MEAN CORPUSCULAR HGB CONC 34 g/dL (31-37); MEAN CORPUSCULAR VOLUME 98 fL (79-100); MONO % 7 % (0-9); NEUT # 12.1 x10^3/uL (1.8-7.7); NEUT % 83 % (31-73); PLATELET COUNT 159 x10^3/uL (140-400); RED BLOOD COUNT 3.83 x10^6/uL (4.30-5.70); WHITE BLOOD COUNT 14.7 x10^3/uL (4.0-11.0)
[2021-06-15 07:43] LABS: CALCIUM 8.2 mg/dL (8.5-10.1); CREATININE 1.5 mg/dL (0.7-1.3); GFR 46.5
[2021-06-15] MEDS: DOXAZOSIN MESYLATE 4 MG TABLET. PO SCH (09:13)
[2021-06-15] MEDS: ATORVASTATIN CALCIUM 10 MG TABLET. PO SCH (09:14)
--- NOTE | 2021-06-15 09:39 | PDOC2 ---
CONSULT Date of Consult Date of Consult DATE: 06/15/21 TIME: 09:36 Reason for Consult Reason for Consult: CIARA Source Source: Chart review, Patient History of Present Illness Reason for Visit: Pt is a 66-year-old gentleman who came in with nausea, vomiting, diarrhea of 2 days origin. The patient was noted to have 103 fever in the ER, patient was admitted. He is found to have pneumonia. Nausea and vomiting has improved . He reports he was unable to keep anything down. He states he was started on a new BP med 5 mg recently, doesnt recall the name. Denies Hx of NSAId use. . He takes Med for Migraine (Non Nsaid) and for Reflux- with much improvement in symptoms Denies any LE edema , denies any urinary complaints. Repots Good UOP . Denies CP or SOB, No F/C Past Medical History Cardiovascular: No pertinent hx Pulmonary: No pertinent hx, Bronchitis, COPD Musculoskeletal: Weakness Renal/: No pertinent hx Endocrine: No pertinent hx Dermatology: No pertinent hx Past Surgical History Past Surgical History: Other Family History Family History: High Cholestrol, Hypertension Social History Quit ALCOHOL: rare Drugs: None Current Problem List Problem List Problems Medical Problems: (1) Sepsis due to pneumonia Status: Acute Current Medications Current Medications Current Medications Acetaminophen (Tylenol) 1,000 mg 1X ONCE PO Last administered on 06/14/21at 08:09; Start 06/14/21 at 07:30; Stop 06/14/21 at 07:34; Status DC Sodium Chloride 1,000 ml @ 2,000 mls/hr 1X ONCE IV Last administered on 06/14/21at 08:10; Start 06/14/21 at 07:30; Stop 06/14/21 at 07:59; Status DC Levofloxacin/ Dextrose 150 ml @ 100 mls/hr 1X ONCE IV Last administered on 06/14/21at 08:10; Start 06/14/21 at 08:00; Stop 06/14/21 at 09:29; Status DC Vancomycin HCl (Vanco Per Pharmacy) 1 each PRN DAILY PRN MC SEE COMMENTS; Start 06/14/21 at 08:00; Stop 06/14/21 at 11:35; Status DC Vancomycin HCl 1.5 gm/Sodium Chloride 500 ml @ 250 mls/hr 1X ONCE IV Last administered on 06/14/21at 11:11; Start 06/14/21 at 08:00; Stop 06/14/21 at 09:59; Status DC Ondansetron HCl (Zofran) 4 mg 1X ONCE IVP Last administered on 06/14/21at 08:07; Start 06/14/21 at 08:00; Stop 06/14/21 at 08:01; Status DC Ondansetron HCl (Zofran) 4 mg PRN Q8HRS PRN IVP NAUSEA/VOMITING; Start 06/14/21 at 09:15; Stop 06/15/21 at 09:14; Status DC Sodium Chloride 1,000 ml @ 125 mls/hr Q8H IV Last administered on 06/15/21at 01:27; Start 06/14/21 at 09:15; Stop 06/15/21 at 09:14; Status DC Acetaminophen (Tylenol) 650 mg PRN Q4HRS PRN PO FEVER > 100.3'F; Start 06/14/21 at 09:15; Stop 06/15/21 at 09:14; Status DC Sodium Chloride (Normal Saline Flush) 3 ml QSHIFT PRN IV AFTER MEDS AND BLOOD DRAWS; Start 06/14/21 at 11:30 Ondansetron HCl (Zofran) 4 mg PRN Q4HRS PRN IV NAUSEA/VOMITING; Start 06/14/21 at 11:30 Acetaminophen (Tylenol) 650 mg PRN Q4HRS PRN PO TEMP OVER 100.4F OR MILD PAIN; Start 06/14/21 at 11:30 Al Hydroxide/Mg Hydroxide (Mylanta Plus Xs) 30 ml PRN DAILY PRN PO HEARTBURN / GAS Last administered on 06/14/21at 21:05; Start 06/14/21 at 11:30 Sodium Monofluorophosphate (Fleet Adult) 133 ml PRN DAILY PRN NE CONSTIPATION; Start 06/14/21 at 11:30 Docusate Sodium (Colace) 100 mg PRN BID PRN PO HARD STOOLS; Start 06/14/21 at 11:30 Albuterol/ Ipratropium (Duoneb) 3 ml Q4H NEB ; Start 06/14/21 at 11:30; Stop 06/14/21 at 15:26; Status DC Guaifenesin (Robitussin) 200 mg PRN Q4HRS PRN PO COUGH; Start 06/14/21 at 11:30 Lorazepam (Ativan) 0.5 mg PRN Q4HRS PRN PO ANXIETY / AGITATION; Start 06/14/21 at 11:30 Enoxaparin Sodium (Lovenox 40mg Syringe) 40 mg Q24H SQ Last administered on 06/14/21at 12:10; Start 06/14/21 at 11:30 Levofloxacin/ Dextrose 100 ml @ 100 mls/hr Q24H IV Last administered on 06/15/21at 09:14; Start 06/14/21 at 12:00 Vancomycin HCl (Vanco Per Pharmacy) 1 each PRN DAILY PRN MC SEE COMMENTS; Start 06/14/21 at 11:30; Status UNV Atorvastatin Calcium (Lipitor) 10 mg DAILY PO Last administered on 06/15/21at 09:14; Start 06/14/21 at 14:30 Doxazosin Mesylate (Cardura) 4 mg DAILY PO Last administered on 06/15/21at 09:13; Start 06/14/21 at 14:30 Acetaminophen/ Butalbital/ Caffeine (Fioricet) 1 tab PRN Q4HRS PRN PO MIGRAINE HEADACHE Last administered on 06/14/21at 21:05; Start 06/14/21 at 14:15 Pantoprazole Sodium (Protonix) 40 mg DAILYAC PO Last administered on 06/15/21at 05:01; Start 06/15/21 at 07:30 Albuterol/ Ipratropium (Duoneb) 3 ml PRN Q4HRS PRN NEB SHORTNESS OF BREATH; Start 06/14/21 at 15:30 Active Scripts Active Reported Atorvastatin Calcium 10 Mg Tablet 10 Mg PO DAILY [id number] 50-300-40 (Butalb/Acetaminophen/Caffeine) 1 Each Capsule 1 Cap PO PRN Q4HRS PRN Doxazosin Mesylate 4 Mg Tablet 1 Tab PO DAILY Omeprazole 40 Mg Capsule. 1 Cap PO DAILY Allergies Allergies: Coded Allergies: Penicillins (Unverified Allergy, Intermediate, 04/13/14) ROS Review of System As pe HPI, rest of the ROS is negative Physical Exam Physical Exam GENERAL: not in distress. HEENT: OM moist NECK: Supple, no JVP, no lymphadenopathy. LUNGS: Clear.Non labored HEART: S1, S2 regular. ABDOMEN: soft, obese, NT EXTREMITIES: No edema, cyanosis. SKIN: Unremarkable. NEUROLOGIC alert, awake, and appropriate. No focal neurologic deficit. Psych Cooperative No Saavedra, No CVA or SP tenderness Vital Signs Vital Signs Date Time Temp Pulse Resp B/P (MAP) Pulse Ox O2 Delivery O2 Flow Rate FiO2 06/15/21 09:13 71 116/73 06/15/21 07:00 97.9 18 94 Room Air 97.9 06/15/21 03:00 2.0 Assessment & Plan CIARA - Vasomotor 2/2 Vomiting diarrhea ;Non oliguric per pt report UA unremarkable improving , CT Kidneys and Bladder Unremarkable . Renal function improving. Supportive care, Maintain hydration strict I/O ((Not recorded ) CKD stage 2/3a Baseline 1.1-1.3 per [facility] records . Pt not aware of Dx Pneumonia - Airspace opacities in the right upper lobe likely consolidative process such as pneumonia. Vomiting/Diarrhea- resolved Labs Labs Laboratory Tests Test 06/14/21 07:38 06/14/21 07:39 06/14/21 08:20 06/14/21 11:20 White Blood Count 13.4 x10^3/uL (4.0-11.0) Red Blood Count 4.53 x10^6/uL (4.30-5.70) Hemoglobin 15.3 g/dL (13.0-17.5) Hematocrit 43.7 % (39.0-53.0) Mean Corpuscular Volume 97 fL (79-100) Mean Corpuscular Hemoglobin 34 pg (25-35) Mean Corpuscular Hemoglobin Concent 35 g/dL (31-37) Red Cell Distribution Width 13.6 % (11.5-14.5) Platelet Count 191 x10^3/uL (140-400) Neutrophils (%) (Auto) 88 % (31-73) Lymphocytes (%) (Auto) 8 % (24-48) Monocytes (%) (Auto) 3 % (0-9) Eosinophils (%) (Auto) 0 % (0-3) Basophils (%) (Auto) 0 % (0-3) Neutrophils # (Auto) 11.9 x10^3/uL (1.8-7.7) Lymphocytes # (Auto) 1.1 x10^3/uL (1.0-4.8) Monocytes # (Auto) 0.4 x10^3/uL (0.0-1.1) Eosinophils # (Auto) 0.0 x10^3/uL (0.0-0.7) Basophils # (Auto) 0.1 x10^3/uL (0.0-0.2) Segmented Neutrophils % 81 % (35-66) Band Neutrophils % 9 % (0-9) Lymphocytes % 7 % (24-48) Monocytes % 3 % (0-10) Platelet Estimate Adequate (ADEQUATE) Sodium Level 142 mmol/L (136-145) Potassium Level 4.9 mmol/L (3.5-5.1) Chloride Level 108 mmol/L (98-107) Carbon Dioxide Level 22 mmol/L (21-32) Anion Gap 12 (6-14) Blood Urea Nitrogen 18 mg/dL (8-26) Creatinine 1.9 mg/dL (0.7-1.3) Estimated GFR (Cockcroft-Gault) 35.4 BUN/Creatinine Ratio 9 (6-20) Glucose Level 158 mg/dL (70-99) Lactic Acid Level 2.2 mmol/L (0.4-2.0) 1.7 mmol/L (0.4-2.0) Calcium Level 9.0 mg/dL (8.5-10.1) Total Bilirubin 0.6 mg/dL (0.2-1.0) Aspartate Amino Transf (AST/SGOT) 49 U/L (15-37) Alanine Aminotransferase (ALT/SGPT) 68 U/L (16-63) Alkaline Phosphatase 79 U/L (46-116) Total Protein 7.4 g/dL (6.4-8.2) Albumin 3.6 g/dL (3.4-5.0) Albumin/Globulin Ratio 0.9 (1.0-1.7) Lipase 306 U/L (73-393) Influenza Type A Antigen Negative (NEGATIVE) Influenza Type B Antigen Negative (NEGATIVE) SARS-CoV-2 RNA (YOLIS) Negative (Negative) SARS-CoV-2 Antigen (Rapid) Negative (NEGATIVE) Urine Collection Type Void Urine Color Yellow Urine Clarity Clear Urine pH 5.0 (<5.0-8.0) Urine Specific [place] 1.010 (1.000-1.030) Urine Protein Negative mg/dL (NEG-TRACE) Urine Glucose (UA) Negative mg/dL (NEG) Urine Ketones (Stick) Negative mg/dL (NEG) Urine Blood Negative (NEG) Urine Nitrite Negative (NEG) Urine Bilirubin Negative (NEG) Urine Urobilinogen Dipstick 0.2 mg/dL (0.2 mg/dL) Urine Leukocyte Esterase Negative (NEG) Urine RBC 1-2 /HPF (0-2) Urine WBC Occ /HPF (0-4) Urine Bacteria 0 /HPF (0-FEW) Test 06/15/21 06:10 White Blood Count 14.7 x10^3/uL (4.0-11.0) Red Blood Count 3.83 x10^6/uL (4.30-5.70) Hemoglobin 12.6 g/dL (13.0-17.5) Hematocrit 37.5 % (39.0-53.0) Mean Corpuscular Volume 98 fL (79-100) Mean Corpuscular Hemoglobin 33 pg (25-35) Mean Corpuscular Hemoglobin Concent 34 g/dL (31-37) Red Cell Distribution Width 14.0 % (11.5-14.5) Platelet Count 159 x10^3/uL (140-400) Neutrophils (%) (Auto) 83 % (31-73) Lymphocytes (%) (Auto) 9 % (24-48) Monocytes (%) (Auto) 7 % (0-9) Eosinophils (%) (Auto) 1 % (0-3) Basophils (%) (Auto) 0 % (0-3) Neutrophils # (Auto) 12.1 x10^3/uL (1.8-7.7) Lymphocytes # (Auto) 1.4 x10^3/uL (1.0-4.8) Monocytes # (Auto) 1.0 x10^3/uL (0.0-1.1) Eosinophils # (Auto) 0.1 x10^3/uL (0.0-0.7) Basophils # (Auto) 0.0 x10^3/uL (0.0-0.2) Sodium Level 142 mmol/L (136-145) Potassium Level 4.0 mmol/L (3.5-5.1) Chloride Level 108 mmol/L (98-107) Carbon Dioxide Level 26 mmol/L (21-32) Anion Gap 8 (6-14) Blood Urea Nitrogen 18 mg/dL (8-26) Creatinine 1.5 mg/dL (0.7-1.3) Estimated GFR (Cockcroft-Gault) 46.5 Glucose Level 90 mg/dL (70-99) Calcium Level 8.2 mg/dL (8.5-10.1) Laboratory Tests Test 06/14/21 11:20 06/15/21 06:10 Lactic Acid Level 1.7 mmol/L (0.4-2.0) White Blood Count 14.7 x10^3/uL (4.0-11.0) Red Blood Count 3.83 x10^6/uL (4.30-5.70) Hemoglobin 12.6 g/dL (13.0-17.5) Hematocrit 37.5 % (39.0-53.0) Mean Corpuscular Volume 98 fL (79-100) Mean Corpuscular Hemoglobin 33 pg (25-35) Mean Corpuscular Hemoglobin Concent 34 g/dL (31-37) Red Cell Distribution Width 14.0 % (11.5-14.5) Platelet Count 159 x10^3/uL (140-400) Neutrophils (%) (Auto) 83 % (31-73) Lymphocytes (%) (Auto) 9 % (24-48) Monocytes (%) (Auto) 7 % (0-9) Eosinophils (%) (Auto) 1 % (0-3) Basophils (%) (Auto) 0 % (0-3) Neutrophils # (Auto) 12.1 x10^3/uL (1.8-7.7) Lymphocytes # (Auto) 1.4 x10^3/uL (1.0-4.8) Monocytes # (Auto) 1.0 x10^3/uL (0.0-1.1) Eosinophils # (Auto) 0.1 x10^3/uL (0.0-0.7) Basophils # (Auto) 0.0 x10^3/uL (0.0-0.2) Sodium Level 142 mmol/L (136-145) Potassium Level 4.0 mmol/L (3.5-5.1) Chloride Level 108 mmol/L (98-107) Carbon Dioxide Level 26 mmol/L (21-32) Anion Gap 8 (6-14) Blood Urea Nitrogen 18 mg/dL (8-26) Creatinine 1.5 mg/dL (0.7-1.3) Estimated GFR (Cockcroft-Gault) 46.5 Glucose Level 90 mg/dL (70-99) Calcium Level 8.2 mg/dL (8.5-10.1) Review All relevant outside records, renal labs, imaging studies, telemetry/EKG's were reviewed. Images Images EXAM: CT Chest, Abdomen and Pelvis without IV contrast CLINICAL HISTORY: Reason: vomitting/aspiration pna / Spl. Instructions: / History: COMPARISON: 04/13/14 TECHNIQUE: Helical CT of the chest, abdomen and pelvis was performed without intravenous contrast. Axial, coronal and sagittal reformatted images were generated. ---PQRS compliance statement - One or more of the following individualized dose reduction techniques were utilized for this study: 1. Automated exposure control 2. Adjustment of the mA and/or kV according to patient size 3. Use of iterative reconstruction technique--- FINDINGS: Lack of intravenous contrast limits evaluation of solid organs, vasculature, and lymph nodes. Chest: Heart is not enlarged. Coronary calcifications. No pericardial effusion. No pleural effusion. No pneumothorax. No axillary lymphadenopathy. A few mildly prominent mediastinal and hilar lymph nodes are seen, possibly reactive. Confluent airspace opacities in the anterior right upper lobe. Background of emphysematous change. 6 mm peripheral right lower lobe lung nodule (image 50) is stable to 04/13/2014. Abdomen and Pelvis: Liver, spleen, adrenal glands and pancreas are unremarkable. Gallbladder is normal. No biliary ductal dilatation. No focal renal lesion. No hydronephrosis. No hydroureter. Bladder is unremarkable. Fat-containing left inguinal hernia is seen. Trace fat-containing periumbilical hernia. Moderate colonic stool content is seen. No small or large bowel dilatation. No bowel obstruction. Appendix is not seen. No abdominal or pelvic ascites. Trace infrarenal aortic ectasia. Bones: Hip joint degenerative changes are seen. Degenerative changes of the lower lumbar spine. Unilateral right L5 pars defect is seen. IMPRESSION: 1. Airspace opacities in the right upper lobe likely consolidative process such as pneumonia. Imaging follow-up to resolution is recommended. 2. Mildly prominent mediastinal and hilar lymph nodes may be reactive, recommend close attention on follow-up. SHRUTI HAMILTON MD Jun 15, 2021 09:39
--- NOTE | 2021-06-15 09:54 | CONS ---
DATE OF CONSULTATION: 06/15/2021 REFERRING PHYSICIAN: Rogelio Beckman MD REASON FOR CONSULTATION: Aspiration pneumonia. HISTORY OF PRESENT ILLNESS: This is a 66-year-old gentleman who came in with nausea, vomiting, diarrhea of 2 days origin. The patient was noted to have 103 fever in the ER, patient was admitted. He is found to have pneumonia. The patient has been started on levofloxacin. The patient's nausea and vomiting has improved. Diarrhea has improved and the fever has improved now. The patient is comfortable on 2 liters. PAST MEDICAL HISTORY: Positive for COPD, pancreatitis. PAST SURGICAL HISTORY: He has had appendicectomy. SOCIAL HISTORY: Negative for smoking. He quit last year. Negative for alcohol use or drug use. ALLERGIES: LISTED ALLERGIC TO PENICILLIN, WHICH CAUSED HIM TO HAVE PASSING OUT. ALSO, HE SAID THAT HIS SKIN WAS PEELING AFTER PENICILLIN. CURRENT MEDICATIONS: Reviewed. REVIEW OF SYSTEMS: As in HPI. All other systems reviewed are negative. PHYSICAL EXAMINATION: GENERAL: Alert, oriented gentleman, not in distress. VITAL SIGNS: T-max is 103.1, pulse 71, respirations 18, blood pressure 116/73. HEENT: NAD. NECK: Supple, no JVP, no lymphadenopathy. LUNGS: Clear. HEART: S1, S2 regular. ABDOMEN: Benign. EXTREMITIES: No edema, cyanosis. SKIN: Unremarkable. NEUROLOGIC: The patient is alert, awake, and appropriate. No focal neurologic deficit. LABORATORY DATA: White count is 14.7. BUN and creatinine is 1.18 and 1.5. Urinalysis unremarkable. COVID is negative. Blood cultures negative. Chest x-ray and CT showed a pulmonary infiltrate in the right upper lobe. IMPRESSION: 1. Aspiration pneumonia. 2. Fever. 3. Leukocytosis. 4. Nausea, vomiting, diarrhea/gastroenteritis. 5. Chronic obstructive pulmonary disease. RECOMMENDATIONS: Recommend continue levofloxacin, supportive care and soon to be able to discharge the gentleman home. Thank you very much, Dr. Beckman, for giving me opportunity to participate in this patient's care. BREANA/GOPI ALVAREZ: Linda TID: [id number]
--- NOTE | 2021-06-15 10:31 | PDOC ---
PROGRESS NOTES Date of Service: DATE: 06/15/21 TIME: 10:31 Chief Complaint Chief Complaint mpression: 1. Right upper lobe consolidation, concerning for pneumonia. Recommend follow- up to ensure resolution. Electronically signed by: Jose Centeno DO (06/14/2021 8:07 AM) [id number] DICTATED and SIGNED BY: JOSE CENTENO DO DATE: 06/14/21 [id number] VTE Prophylaxis Ordered VTE Prophylaxis Devices: Yes VTE Pharmacological Prophylaxi: Yes Assessment/Plan Assessment/Plan mpression: 1. Right upper lobe consolidation, c/w pneumonia possible gram neg, gram pos 2. acute hypoxis resp failure 3. COPD WITH ACUTE EXAC 4. Sepsis due to pneumonia 5. CIARA 6. HX TOBACCO ABUSE, remote 2019 cessation ADMITTED PLAN ADMIT ID CONSULT BLOOD CULT IV LEVAQUIN, d/c VANC due to ciara / Recommend continue levofloxacin, supportive care dvt prophylaxis 'duonebs qid prn q 4 hrs NEPHROLOGY CONSULT CR BETTER AT 1.5 D/W RN Justifications for Admission Justifications for Admission Other Justification History of Present Illness History of Present Illness Identification/Chief Complaint Chief Complaint sob, fever, cough onset today History of Present Illness History of Present Illness 66-year-old male presented to the emergency department with symptoms including fever, chills, fatigue, cough, nausea, vomiting, diarrhea for the past 24 hours which have been getting worse. 11 episodes of vomiting and diarrhea that has been nonbloody and nonbilious. noted fever since this morning that he has not treated at home. was vaccinated for COVID-19, states that he feels extremely nauseated, very thirsty and dehydrated. cxr c/w rul infiltrate some shortness of breath. stopped smoking last year denies chest pain, abdominal pain, urinary symptoms, recent trauma, or any other complaints. penicillin allergy, which he describes as syncope. Past Medical History Past Medical History Past Medical History Past Medical History: Pancreatitis Past Surgical History: Appendectomy, Tonsillectomy, Other Additional Past Surgical Histo: colonoscopy Smoking Status: stopped 2019 Alcohol Use: Rarely Drug Use: None FHX COPD Cardiovascular: No pertinent hx Pulmonary: No pertinent hx, Bronchitis, COPD Musculoskeletal: Weakness Renal/: No pertinent hx Endocrine: No pertinent hx Dermatology: No pertinent hx Past Surgical History Past Surgical History: Other Family History Family History: High Cholestrol, Hypertension Social History Smoke: Quit ALCOHOL: rare Drugs: None Current Problem List Problem List Problems Medical Problems: (1) Sepsis due to pneumonia Status: Acute Current Medications Current Medications Current Medications Acetaminophen (Tylenol) 1,000 mg 1X ONCE PO Last administered on 06/14/21at 08:09; Start 06/14/21 at 07:30; Stop 06/14/21 at 07:34; Status DC Sodium Chloride 1,000 ml @ 2,000 mls/hr 1X ONCE IV Last administered on 06/14/21at 08:10; Start 06/14/21 at 07:30; Stop 06/14/21 at 07:59; Status DC Levofloxacin/ Dextrose 150 ml @ 100 mls/hr 1X ONCE IV Last administered on 06/14/21at 08:10; Start 06/14/21 at 08:00; Stop 06/14/21 at 09:29 Vancomycin HCl (Vanco Per Pharmacy) 1 each PRN DAILY PRN MC SEE COMMENTS; Start 06/14/21 at 08:00 Vancomycin HCl 1.5 gm/Sodium Chloride 500 ml @ 250 mls/hr 1X ONCE IV ; Start 06/14/21 at 08:00; Stop 06/14/21 at 09:59 Ondansetron HCl (Zofran) 4 mg 1X ONCE IVP Last administered on 06/14/21at 08:07; Start 06/14/21 at 08:00; Stop 06/14/21 at 08:01; Status DC Active Scripts Active Voltaren (Diclofenac Sodium) 100 Gm Gel..gram. 1 Gm TP QID Reported No Known Medications Prior To Admisstion (Info) Each 1 Each MC Allergies Allergies: Coded Allergies: Penicillins (Unverified Allergy, Intermediate, 04/13/14) ROS General: YES: Chills, Fatigue, Malaise, Appetite PSYCHOLOGICAL ROS: No: Anxiety, Behavioral Disorder, Concentration difficultie, Decreased libido, Depression, Disorientation, Hallucinations, Hostility, Irritablity, Memory difficulties, Mood Swings, Obsessive thoughts, Physical abuse, Sexual abuse, Sleep disturbances, Suicidal ideation, Other Eyes: No Blurry vision, No Decreased vision, No Double vision, No Dry eyes, No Excessive tearing, No Eye Pain, No Itchy Eyes, No Loss of vision, No Photophobia, No Scotomata, No Uses contacts, No Uses glasses, No Other HEENT: No: Heacaches, Visual Changes, Hearing change, Nasal congestion, Nasal discharge, Oral lesions, Sinus pain, Sore Throat, Epistaxis, Sneezing, Snoring, Tinnitus, Vertigo, Vocal changes, Other ALLERGY AND IMMUNOLOGY: YES: Hives; No: Insect Bite Sensitivity, Itchy/Watery Eyes, Nasal Congestion, Post Nasal Drip, Seasonal Allergies, Other Hematological and Lymphatic: No: Bleeding Problems, Blood Clots, Blood Transfusions, Brusing, Night Sweats, Pallor, Swollen Lymph Nodes, Other ENDOCRINE: No: Breast Changes, Galactorrhea, Hair Pattern Changes, Hot Flashes, Malaise/lethargy, Mood Swings, Palpitations, Polydipsia/polyuria, Skin Changes, Temperature Intolerance, Unexpected Weight Changes, Other Breast: No New/Changing Breast Lumps, No Nipple changes, No Nipple discharge, No Other Respiratory: YES: Cough, Shortness of breath, SOB with excertion, Sputum Changes; No: Hemoptysis, Orthopnea, Pleuritic Pain, Stridor, Tachypnea, Wheezing, Other Cardiovascular: No Chest Pain, No Palpitations, No Orthopnea, No Paroxysmal Noc. Dyspnea, No Edema, No Lt Headedness, No Other Gastrointestinal: Yes Nausea, Yes Vomiting; No Abdominal Pain, No Diarrhea, No Constipation, No Melena, No Hematochezia, No Other Genitourinary: YES Frequency; No Dysuria, No Incontinence, No Hematuria, No Retention, No Discharge, No Urgency, No Pain, No Flank Pain, No Other, No , No , No , No , No , No , No Musculoskeletal: No Gait Disturbance, No Joint Pain, No Joint Stiffness, No Joint Swelling, No Muscle Pain, No Muscular Weakness, No Pain In:, No Swelling In:, No Other Neurological: No Behavorial Changes, No Bowel/Bladder ControlChng, No Confusion, No Dizziness, No Gait Disturbance, No Headaches, No Impaired Coord/balance, No Memory Loss, No Numbness/Tingling, No Seizures, No Speech Problems, No Tremors, No Visual Changes, No Weakness, No Other Skin: Yes Dry Skin; No Eczema, No Hair Changes, No Lumps, No Mole Changes, No Mottling, No Nail Changes, No Pruritus, No Rash, No Skin Lesion Changes, No Other, No Acne Vitals Vitals Vital Signs Date Time Temp Pulse Resp B/P (MAP) Pulse Ox O2 Delivery O2 Flow Rate FiO2 06/15/21 09:13 71 116/73 06/15/21 07:00 97.9 18 94 Room Air 97.9 06/15/21 03:00 2.0 Physical Exam Physical Exam HENT: Atraumatic, bilateral external ears normal, nose normal. Eyes: PERRLA, EOMI, conjunctiva normal, no discharge. Neck: Normal range of motion, supple, no stridor. Cardiovascular: Heart rate regular rhythm. 2+ radial pulses Lungs & Thorax: No respiratory distress, symmetrical expansion. Bilateral breath sounds clear to auscultation Skin: Warm, dry. Extremities: No tenderness, no cyanosis, ROM intact, no edema. Neurologic: Alert and oriented X 3, normal motor function, normal sensory function, no focal deficits noted. Non ataxic gait. GCS 15. Psychologic: Affect normal, judgment normal, mood normal. General: Alert, Oriented X3, Cooperative, mild distress HEENT: EOMI, Mucous membr. moist/pink Lungs: Other (rul crackles) Heart: RRR Breasts: Not examined Abdomen: Normal bowel sounds, Soft, Other (obese) PELVIC: Examination not indicated Extremities: No cyanosis Neuro: Normal speech, Strength at 5/5 X4 ext, Cranial nerves 3-12 NL Psych/Mental Status: Mental status NL, Mood NL General: Alert, Oriented X3, Cooperative, No acute distress, mild distress Lungs: Crackles Abdomen: Normal bowel sounds, Soft, Other (obese) Extremities: No clubbing, No cyanosis Labs LABS talk about your own wishes for healthcare in case youre ever not able to tell your loved ones or healthcare team what your wishes are. If you became really sick tomorrow, would your loved ones or healthcare team know what your wishes were? Here are some examples of different sets of goals and health care directives for your conversations: My wish is to use all medical therapies including resuscitation (such as CPR) and artificial life-sustaining treatments (such as machines and medicine) in an intensive care unit, to keep me alive if at all possible. My wish is to live as long as possible, but I dont want attempts to bring me back to life if my heart and breathing stop. I would like full medical care but without using resuscitation or artificial life-sustaining intensive treatments, if these are unlikely to make me live longer or restore me to a certain quality of life. I will accept treatments that try to fix medical problems, but if Im not getting better or going to have a certain quality of life, I would want to switch to focusing only on my comfort and letting my happen naturally. My wish is for healthcare to focus on my comfort and lessen suffering. I would like medical care that focuses only on my quality of life and that allows me to naturally. Consider: What does a good quality of life mean for me? For many people, it is the ability to live independently and tell their own story. I may define it differently. Under what circumstances would I not want to be kept alive by medical treatments, resuscitation, or intensive care? What kind of changes to my health or life might make me change my mind? If I clearly am facing the last chapter of my life, how do I want the story to end? Who do I want to speak for me if I cant speak for myself? Do they understand my preferences? Are they willing to assume the role of my Durable Power of Acquisition Consultant? Can I change my Goals of Care Designation? Yes, your Goals of Care Designation can be changed at any time. It should be reviewed if: your health condition changes your circumstances change (such as new understanding) you are transferred or admitted to another healthcare setting dpoa review, to pt portal 16 min and question review Laboratory Tests Test 06/14/21 11:20 06/15/21 06:10 Lactic Acid Level 1.7 mmol/L (0.4-2.0) White Blood Count 14.7 x10^3/uL (4.0-11.0) Red Blood Count 3.83 x10^6/uL (4.30-5.70) Hemoglobin 12.6 g/dL (13.0-17.5) Hematocrit 37.5 % (39.0-53.0) Mean Corpuscular Volume 98 fL (79-100) Mean Corpuscular Hemoglobin 33 pg (25-35) Mean Corpuscular Hemoglobin Concent 34 g/dL (31-37) Red Cell Distribution Width 14.0 % (11.5-14.5) Platelet Count 159 x10^3/uL (140-400) Neutrophils (%) (Auto) 83 % (31-73) Lymphocytes (%) (Auto) 9 % (24-48) Monocytes (%) (Auto) 7 % (0-9) Eosinophils (%) (Auto) 1 % (0-3) Basophils (%) (Auto) 0 % (0-3) Neutrophils # (Auto) 12.1 x10^3/uL (1.8-7.7) Lymphocytes # (Auto) 1.4 x10^3/uL (1.0-4.8) Monocytes # (Auto) 1.0 x10^3/uL (0.0-1.1) Eosinophils # (Auto) 0.1 x10^3/uL (0.0-0.7) Basophils # (Auto) 0.0 x10^3/uL (0.0-0.2) Sodium Level 142 mmol/L (136-145) Potassium Level 4.0 mmol/L (3.5-5.1) Chloride Level 108 mmol/L (98-107) Carbon Dioxide Level 26 mmol/L (21-32) Anion Gap 8 (6-14) Blood Urea Nitrogen 18 mg/dL (8-26) Creatinine 1.5 mg/dL (0.7-1.3) Estimated GFR (Cockcroft-Gault) 46.5 Glucose Level 90 mg/dL (70-99) Calcium Level 8.2 mg/dL (8.5-10.1) Assessment and Plan Assessmemt and Plan Problems Medical Problems: (1) Sepsis due to pneumonia Status: Acute Comment Review of Relevant I have reviewed the following items [email or web address] (where applicable) has been applied. Labs Laboratory Tests Test 06/14/21 07:38 06/14/21 07:39 06/14/21 08:20 06/14/21 11:20 White Blood Count 13.4 x10^3/uL (4.0-11.0) Red Blood Count 4.53 x10^6/uL (4.30-5.70) Hemoglobin 15.3 g/dL (13.0-17.5) Hematocrit 43.7 % (39.0-53.0) Mean Corpuscular Volume 97 fL (79-100) Mean Corpuscular Hemoglobin 34 pg (25-35) Mean Corpuscular Hemoglobin Concent 35 g/dL (31-37) Red Cell Distribution Width 13.6 % (11.5-14.5) Platelet Count 191 x10^3/uL (140-400) Neutrophils (%) (Auto) 88 % (31-73) Lymphocytes (%) (Auto) 8 % (24-48) Monocytes (%) (Auto) 3 % (0-9) Eosinophils (%) (Auto) 0 % (0-3) Basophils (%) (Auto) 0 % (0-3) Neutrophils # (Auto) 11.9 x10^3/uL (1.8-7.7) Lymphocytes # (Auto) 1.1 x10^3/uL (1.0-4.8) Monocytes # (Auto) 0.4 x10^3/uL (0.0-1.1) Eosinophils # (Auto) 0.0 x10^3/uL (0.0-0.7) Basophils # (Auto) 0.1 x10^3/uL (0.0-0.2) Segmented Neutrophils % 81 % (35-66) Band Neutrophils % 9 % (0-9) Lymphocytes % 7 % (24-48) Monocytes % 3 % (0-10) Platelet Estimate Adequate (ADEQUATE) Sodium Level 142 mmol/L (136-145) Potassium Level 4.9 mmol/L (3.5-5.1) Chloride Level 108 mmol/L (98-107) Carbon Dioxide Level 22 mmol/L (21-32) Anion Gap 12 (6-14) Blood Urea Nitrogen 18 mg/dL (8-26) Creatinine 1.9 mg/dL (0.7-1.3) Estimated GFR (Cockcroft-Gault) 35.4 BUN/Creatinine Ratio 9 (6-20) Glucose Level 158 mg/dL (70-99) Lactic Acid Level 2.2 mmol/L (0.4-2.0) 1.7 mmol/L (0.4-2.0) Calcium Level 9.0 mg/dL (8.5-10.1) Total Bilirubin 0.6 mg/dL (0.2-1.0) Aspartate Amino Transf (AST/SGOT) 49 U/L (15-37) Alanine Aminotransferase (ALT/SGPT) 68 U/L (16-63) Alkaline Phosphatase 79 U/L (46-116) Total Protein 7.4 g/dL (6.4-8.2) Albumin 3.6 g/dL (3.4-5.0) Albumin/Globulin Ratio 0.9 (1.0-1.7) Lipase 306 U/L (73-393) Influenza Type A Antigen Negative (NEGATIVE) Influenza Type B Antigen Negative (NEGATIVE) SARS-CoV-2 RNA (YOLIS) Negative (Negative) SARS-CoV-2 Antigen (Rapid) Negative (NEGATIVE) Urine Collection Type Void Urine Color Yellow Urine Clarity Clear Urine pH 5.0 (<5.0-8.0) Urine Specific [place] 1.010 (1.000-1.030) Urine Protein Negative mg/dL (NEG-TRACE) Urine Glucose (UA) Negative mg/dL (NEG) Urine Ketones (Stick) Negative mg/dL (NEG) Urine Blood Negative (NEG) Urine Nitrite Negative (NEG) Urine Bilirubin Negative (NEG) Urine Urobilinogen Dipstick 0.2 mg/dL (0.2 mg/dL) Urine Leukocyte Esterase Negative (NEG) Urine RBC 1-2 /HPF (0-2) Urine WBC Occ /HPF (0-4) Urine Bacteria 0 /HPF (0-FEW) Test 06/15/21 06:10 White Blood Count 14.7 x10^3/uL (4.0-11.0) Red Blood Count 3.83 x10^6/uL (4.30-5.70) Hemoglobin 12.6 g/dL (13.0-17.5) Hematocrit 37.5 % (39.0-53.0) Mean Corpuscular Volume 98 fL (79-100) Mean Corpuscular Hemoglobin 33 pg (25-35) Mean Corpuscular Hemoglobin Concent 34 g/dL (31-37) Red Cell Distribution Width 14.0 % (11.5-14.5) Platelet Count 159 x10^3/uL (140-400) Neutrophils (%) (Auto) 83 % (31-73) Lymphocytes (%) (Auto) 9 % (24-48) Monocytes (%) (Auto) 7 % (0-9) Eosinophils (%) (Auto) 1 % (0-3) Basophils (%) (Auto) 0 % (0-3) Neutrophils # (Auto) 12.1 x10^3/uL (1.8-7.7) Lymphocytes # (Auto) 1.4 x10^3/uL (1.0-4.8) Monocytes # (Auto) 1.0 x10^3/uL (0.0-1.1) Eosinophils # (Auto) 0.1 x10^3/uL (0.0-0.7) Basophils # (Auto) 0.0 x10^3/uL (0.0-0.2) Sodium Level 142 mmol/L (136-145) Potassium Level 4.0 mmol/L (3.5-5.1) Chloride Level 108 mmol/L (98-107) Carbon Dioxide Level 26 mmol/L (21-32) Anion Gap 8 (6-14) Blood Urea Nitrogen 18 mg/dL (8-26) Creatinine 1.5 mg/dL (0.7-1.3) Estimated GFR (Cockcroft-Gault) 46.5 Glucose Level 90 mg/dL (70-99) Calcium Level 8.2 mg/dL (8.5-10.1) Laboratory Tests Test 06/14/21 11:20 06/15/21 06:10 Lactic Acid Level 1.7 mmol/L (0.4-2.0) White Blood Count 14.7 x10^3/uL (4.0-11.0) Red Blood Count 3.83 x10^6/uL (4.30-5.70) Hemoglobin 12.6 g/dL (13.0-17.5) Hematocrit 37.5 % (39.0-53.0) Mean Corpuscular Volume 98 fL (79-100) Mean Corpuscular Hemoglobin 33 pg (25-35) Mean Corpuscular Hemoglobin Concent 34 g/dL (31-37) Red Cell Distribution Width 14.0 % (11.5-14.5) Platelet Count 159 x10^3/uL (140-400) Neutrophils (%) (Auto) 83 % (31-73) Lymphocytes (%) (Auto) 9 % (24-48) Monocytes (%) (Auto) 7 % (0-9) Eosinophils (%) (Auto) 1 % (0-3) Basophils (%) (Auto) 0 % (0-3) Neutrophils # (Auto) 12.1 x10^3/uL (1.8-7.7) Lymphocytes # (Auto) 1.4 x10^3/uL (1.0-4.8) Monocytes # (Auto) 1.0 x10^3/uL (0.0-1.1) Eosinophils # (Auto) 0.1 x10^3/uL (0.0-0.7) Basophils # (Auto) 0.0 x10^3/uL (0.0-0.2) Sodium Level 142 mmol/L (136-145) Potassium Level 4.0 mmol/L (3.5-5.1) Chloride Level 108 mmol/L (98-107) Carbon Dioxide Level 26 mmol/L (21-32) Anion Gap 8 (6-14) Blood Urea Nitrogen 18 mg/dL (8-26) Creatinine 1.5 mg/dL (0.7-1.3) Estimated GFR (Cockcroft-Gault) 46.5 Glucose Level 90 mg/dL (70-99) Calcium Level 8.2 mg/dL (8.5-10.1) Microbiology 06/14/21 Blood Culture - Preliminary, Resulted NO GROWTH AFTER 1 DAY Medications Current Medications Acetaminophen (Tylenol) 1,000 mg 1X ONCE PO Last administered on 06/14/21at 0 8:09; Start 06/14/21 at 07:30; Stop 06/14/21 at 07:34; Status DC Sodium Chloride 1,000 ml @ 2,000 mls/hr 1X ONCE IV Last administered on 06/14/21at 08:10; Start 06/14/21 at 07:30; Stop 06/14/21 at 07:59; Status DC Levofloxacin/ Dextrose 150 ml @ 100 mls/hr 1X ONCE IV Last administered on 06/14/21at 08:10; Start 06/14/21 at 08:00; Stop 06/14/21 at 09:29; Status DC Vancomycin HCl (Vanco Per Pharmacy) 1 each PRN DAILY PRN MC SEE COMMENTS; Start 06/14/21 at 08:00; Stop 06/14/21 at 11:35; Status DC Vancomycin HCl 1.5 gm/Sodium Chloride 500 ml @ 250 mls/hr 1X ONCE IV Last administered on 06/14/21at 11:11; Start 06/14/21 at 08:00; Stop 06/14/21 at 09:59; Status DC Ondansetron HCl (Zofran) 4 mg 1X ONCE IVP Last administered on 06/14/21at 08:07; Start 06/14/21 at 08:00; Stop 06/14/21 at 08:01; Status DC Ondansetron HCl (Zofran) 4 mg PRN Q8HRS PRN IVP NAUSEA/VOMITING; Start 06/14/21 at 09:15; Stop 06/15/21 at 09:14; Status DC Sodium Chloride 1,000 ml @ 125 mls/hr Q8H IV Last administered on 06/15/21at 01:27; Start 06/14/21 at 09:15; Stop 06/15/21 at 09:14; Status DC Acetaminophen (Tylenol) 650 mg PRN Q4HRS PRN PO FEVER > 100.3'F; Start 06/14/21 at 09:15; Stop 06/15/21 at 09:14; Status DC Sodium Chloride (Normal Saline Flush) 3 ml QSHIFT PRN IV AFTER MEDS AND BLOOD DRAWS; Start 06/14/21 at 11:30 Ondansetron HCl (Zofran) 4 mg PRN Q4HRS PRN IV NAUSEA/VOMITING; Start 06/14/21 at 11:30 Acetaminophen (Tylenol) 650 mg PRN Q4HRS PRN PO TEMP OVER 100.4F OR MILD PAIN; Start 06/14/21 at 11:30 Al Hydroxide/Mg Hydroxide (Mylanta Plus Xs) 30 ml PRN DAILY PRN PO HEARTBURN / GAS Last administered on 06/14/21at 21:05; Start 06/14/21 at 11:30 Sodium Monofluorophosphate (Fleet Adult) 133 ml PRN DAILY PRN AL CONSTIPATION; Start 06/14/21 at 11:30 Docusate Sodium (Colace) 100 mg PRN BID PRN PO HARD STOOLS; Start 06/14/21 at 11:30 Albuterol/ Ipratropium (Duoneb) 3 ml Q4H NEB ; Start 06/14/21 at 11:30; Stop 06/14/21 at 15:26; Status DC Guaifenesin (Robitussin) 200 mg PRN Q4HRS PRN PO COUGH; Start 06/14/21 at 11:30 Lorazepam (Ativan) 0.5 mg PRN Q4HRS PRN PO ANXIETY / AGITATION; Start 06/14/21 at 11:30 Enoxaparin Sodium (Lovenox 40mg Syringe) 40 mg Q24H SQ Last administered on at 12:10; Start 06/14/21 at 11:30 Levofloxacin/ Dextrose 100 ml @ 100 mls/hr Q24H IV Last administered on 06/15/21at 09:14; Start 06/14/21 at 12:00 Vancomycin HCl (Vanco Per Pharmacy) 1 each PRN DAILY PRN MC SEE COMMENTS; Start 06/14/21 at 11:30; Status UNV Atorvastatin Calcium (Lipitor) 10 mg DAILY PO Last administered on 06/15/21at 09:14; Start 06/14/21 at 14:30 Doxazosin Mesylate (Cardura) 4 mg DAILY PO Last administered on 06/15/21at 09:13; Start 06/14/21 at 14:30 Acetaminophen/ Butalbital/ Caffeine (Fioricet) 1 tab PRN Q4HRS PRN PO MIGRAINE HEADACHE Last administered on 06/14/21at 21:05; Start 06/14/21 at 14:15 Pantoprazole Sodium (Protonix) 40 mg DAILYAC PO Last administered on 06/15/21at 05:01; Start 06/15/21 at 07:30 Albuterol/ Ipratropium (Duoneb) 3 ml PRN Q4HRS PRN NEB SHORTNESS OF BREATH; Start 06/14/21 at 15:30 Active Scripts Active Reported Atorvastatin Calcium 10 Mg Tablet 10 Mg PO DAILY [id number] 50-300-40 (Butalb/Acetaminophen/Caffeine) 1 Each Capsule 1 Cap PO PRN Q4HRS PRN Doxazosin Mesylate 4 Mg Tablet 1 Tab PO DAILY Omeprazole 40 Mg Capsule. 1 Cap PO DAILY Vitals/I & O Vital Sign - Last 24 Hours 06/14/21 06/14/21 06/14/21 06/14/21 11:00 11:32 14:30 15:00 Temp 100.6 98.1 100.6 98.1 Pulse 92 92 74 Resp 20 20 B/P (MAP) 128/70 (89) 128/70 104/56 (72) Pulse Ox 98 98 O2 Delivery Nasal Cannula O2 Flow Rate 3.0 06/14/21 06/14/21 06/14/21 06/15/21 19:00 20:00 23:00 03:00 Temp 98.2 98.4 98.4 98.2 98.4 98.4 Pulse 69 71 72 Resp 18 20 18 B/P (MAP) 120/63 (82) 112/66 (81) 112/67 (82) Pulse Ox 98 97 98 O2 Delivery Nasal Cannula Nasal Cannula Nasal Cannula O2 Flow Rate 2.0 3.0 2.0 06/15/21 06/15/21 07:00 09:13 Temp 97.9 97.9 Pulse 71 71 Resp 18 B/P (MAP) 116/73 (87) 116/73 Pulse Ox 94 O2 Delivery Room Air Intake and Output 06/14/21 06/14/21 06/15/21 15:00 23:00 07:00 Intake Total 1000 ml 120 ml 240 ml Balance 1000 ml 120 ml 240 ml Justicifation of Admission Dx: Justifications for Admission: Justification of Admission Dx: Yes Sepsis: Hypoxemia KARL JIMENEZ MD Jun 15, 2021 10:31
[2021-06-15 11:00] VITALS: BP 109/69
[2021-06-15] MEDS: ENOXAPARIN 40 MG/0.4 ML SYRINGE. SQ SCH (12:18)
[2021-06-15] MEDS: LACTOBACILLUS RHAMNOSUS GG 1 CAPSULE. PO SCH ×2 (12:37→22:11)
[2021-06-15] MEDS: BUTALB/APAP/CAFEIN 50/325/40MG TABLET. PO PRN ×2 (14:42→22:12)
[2021-06-15 15:00] VITALS: BP 120/75
--- NOTE | 2021-06-15 15:34 | NUR ---
SS following for discharge planning. SS reviewed pt chart and discussed with pt RN. Pt is from home with spouse and is currently on room air. Pt on IV Levofloxacin. PT/OT recommended home independent. SS will continue to follow for discharge planning.
[2021-06-15 19:00] VITALS: BP 134/73
[2021-06-15] MEDS: MAG HYDROX/ALUMINUM HYD/SIMETH 30 ML ORAL.SUSP PO PRN (22:12)
[2021-06-15 23:17] VITALS: BP 125/62
[2021-06-16 03:00] VITALS: BP 114/56
[2021-06-16] MEDS: PANTOPRAZOLE 40 MG TABLET.DR. PO SCH (05:23)
[2021-06-16 07:00] VITALS: BP 122/24
--- NOTE | 2021-06-16 07:40 | PDOC ---
PULMONARY PROGRESS NOTES DATE: 06/16/21 TIME: 07:40 Subjective Patient feels better, lungs are not sore today Vitals Vital Signs Date Time Temp Pulse Resp B/P (MAP) Pulse Ox O2 Delivery O2 Flow Rate FiO2 06/16/21 03:00 98.3 81 16 114/56 (75) 96 Room Air 98.3 06/15/21 15:00 22.0 ROS: No Nausea, No Abdominal Pain, No Increase Cough General: Alert Lungs: Crackles Cardiovascular: S1, S2 Abdomen: Soft, Non-tender Neuro Exam: Alert Extremities: No Edema Skin: Warm Labs Laboratory Tests Test 06/14/21 08:20 06/14/21 11:20 06/15/21 06:10 Urine Collection Type Void Urine Color Yellow Urine Clarity Clear Urine pH 5.0 (<5.0-8.0) Urine Specific [place] 1.010 (1.000-1.030) Urine Protein Negative mg/dL (NEG-TRACE) Urine Glucose (UA) Negative mg/dL (NEG) Urine Ketones (Stick) Negative mg/dL (NEG) Urine Blood Negative (NEG) Urine Nitrite Negative (NEG) Urine Bilirubin Negative (NEG) Urine Urobilinogen Dipstick 0.2 mg/dL (0.2 mg/dL) Urine Leukocyte Esterase Negative (NEG) Urine RBC 1-2 /HPF (0-2) Urine WBC Occ /HPF (0-4) Urine Bacteria 0 /HPF (0-FEW) Lactic Acid Level 1.7 mmol/L (0.4-2.0) White Blood Count 14.7 x10^3/uL (4.0-11.0) Red Blood Count 3.83 x10^6/uL (4.30-5.70) Hemoglobin 12.6 g/dL (13.0-17.5) Hematocrit 37.5 % (39.0-53.0) Mean Corpuscular Volume 98 fL (79-100) Mean Corpuscular Hemoglobin 33 pg (25-35) Mean Corpuscular Hemoglobin Concent 34 g/dL (31-37) Red Cell Distribution Width 14.0 % (11.5-14.5) Platelet Count 159 x10^3/uL (140-400) Neutrophils (%) (Auto) 83 % (31-73) Lymphocytes (%) (Auto) 9 % (24-48) Monocytes (%) (Auto) 7 % (0-9) Eosinophils (%) (Auto) 1 % (0-3) Basophils (%) (Auto) 0 % (0-3) Neutrophils # (Auto) 12.1 x10^3/uL (1.8-7.7) Lymphocytes # (Auto) 1.4 x10^3/uL (1.0-4.8) Monocytes # (Auto) 1.0 x10^3/uL (0.0-1.1) Eosinophils # (Auto) 0.1 x10^3/uL (0.0-0.7) Basophils # (Auto) 0.0 x10^3/uL (0.0-0.2) Sodium Level 142 mmol/L (136-145) Potassium Level 4.0 mmol/L (3.5-5.1) Chloride Level 108 mmol/L (98-107) Carbon Dioxide Level 26 mmol/L (21-32) Anion Gap 8 (6-14) Blood Urea Nitrogen 18 mg/dL (8-26) Creatinine 1.5 mg/dL (0.7-1.3) Estimated GFR (Cockcroft-Gault) 46.5 Glucose Level 90 mg/dL (70-99) Calcium Level 8.2 mg/dL (8.5-10.1) Medications Active Scripts Medications Dose Route/Sig Max Daily Dose Days Date Category Atorvastatin Calcium 10 Mg Tablet 10 Mg PO DAILY 06/14/21 Reported Optvzc-Lewtnhcy-Ldss 50-300-40 (Butalb/Acetaminophen/Caffeine) 1 Each Capsule 1 Cap PO PRN Q4HRS PRN 06/14/21 Reported Doxazosin Mesylate 4 Mg Tablet 1 Tab PO DAILY 06/14/21 Reported Omeprazole 40 Mg Capsule. 1 Cap PO DAILY 06/14/21 Reported Impression . IMPRESSION: 1. Acute hypoxic respiratory failure secondary to aspiration pneumonia involving the right upper lobe in a patient who has 52 years of tobaccoism. 2. Nausea, vomiting improved 2. COPD unknown FEV1 3. Acute kidney injury secondary to dehydration. 4. Abnormal liver function tests. 5. Leukocytosis. 6. Negative SARS-CoV-[address] chest report IMPRESSION: 1. Airspace opacities in the right upper lobe likely consolidative process such as pneumonia. Imaging follow-up to resolution is recommended. 2. Mildly prominent mediastinal and hilar lymph nodes may be reactive, recommend close attention on follow-up. Plan . Updated 06/16 ID consulted antibiotics per ID Oxygen supplementation Repeat CT chest in 2 months updated 06/15 continue oxygen supplementation Continue empiric antibiotics IV fluids CT chest reviewed opacity right upper lobe Repeat CT chest in 2 Follow-up on blood cultures RECOMMENDATIONS: 1. Continue present oxygen, keep saturation 92 and above. 2. Obtain CT chest, abdomen and pelvis without contrast. 3. Follow GI recommendations. 4. Follow blood cultures. 5. Infectious disease consult. 6. Empiric antibiotics per Infectious Disease. 7. Followup on COVID PCR. 8. IV hydration and monitor renal function. 9. Discussed with RN. We will follow along with you. ALINA OSORIO MD Jun 16, 2021 07:40
[2021-06-16] MEDS: LACTOBACILLUS RHAMNOSUS GG 1 CAPSULE. PO SCH ×2 (08:56→20:04)
[2021-06-16] MEDS: ATORVASTATIN CALCIUM 10 MG TABLET. PO SCH (08:56)
[2021-06-16] MEDS: DOXAZOSIN MESYLATE 4 MG TABLET. PO SCH (08:56)
[2021-06-16 09:02] LABS: CALCIUM 9.1 mg/dL (8.5-10.1); CREATININE 1.4 mg/dL (0.7-1.3); GFR 50.4
[2021-06-16 11:00] VITALS: BP 116/74
[2021-06-16] MEDS: BUTALB/APAP/CAFEIN 50/325/40MG TABLET. PO PRN ×2 (11:26→20:04)
[2021-06-16] MEDS: ENOXAPARIN 40 MG/0.4 ML SYRINGE. SQ SCH (11:29)
--- NOTE | 2021-06-16 11:32 | PDOC ---
PROGRESS NOTES Date of Service: DATE: 06/16/21 TIME: 11:32 Chief Complaint Chief Complaint mpression: 1. Right upper lobe consolidation, concerning for pneumonia. Recommend follow- up to ensure resolution. Electronically signed by: Jose Sanchez DO (06/14/2021 8:07 AM) [id number] DICTATED and SIGNED BY: JOSE SANCHEZ DO DATE: 06/14/21 [id number] VTE Prophylaxis Ordered VTE Prophylaxis Devices: Yes VTE Pharmacological Prophylaxi: Yes Assessment/Plan Assessment/Plan mpression: 1. Right upper lobe consolidation, c/w pneumonia possible gram neg, gram pos 2. acute hypoxis resp failure 3. COPD WITH ACUTE EXAC 4. Sepsis due to pneumonia 5. CIARA 6. HX TOBACCO ABUSE, remote 2019 cessation ADMITTED PLAN ADMIT ID CONSULT BLOOD CULT IV LEVAQUIN, d/c VANC due to ciara / Recommend continue levofloxacin, supportive care dvt prophylaxis 'duonebs qid prn q [address] Kidneys and Bladder Unremarkable . Renal function improving CR BETTER AT 1.5 D/W RN Justifications for Admission Justifications for Admission Other Justification History of Present Illness History of Present Illness Identification/Chief Complaint Chief Complaint sob, fever, cough onset today History of Present Illness History of Present Illness 66-year-old male presented to the emergency department with symptoms including fever, chills, fatigue, cough, nausea, vomiting, diarrhea for the past 24 hours which have been getting worse. 11 episodes of vomiting and diarrhea that has been nonbloody and nonbilious. noted fever since this morning that he has not treated at home. was vaccinated for COVID-19, states that he feels extremely nauseated, very thirsty and dehydrated. cxr c/w rul infiltrate some shortness of breath. stopped smoking last year denies chest pain, abdominal pain, urinary symptoms, recent trauma, or any other complaints. penicillin allergy, which he describes as syncope. Past Medical History Past Medical History Past Medical History Past Medical History: Pancreatitis Past Surgical History: Appendectomy, Tonsillectomy, Other Additional Past Surgical Histo: colonoscopy Smoking Status: stopped 2019 Alcohol Use: Rarely Drug Use: None FHX COPD Cardiovascular: No pertinent hx Pulmonary: No pertinent hx, Bronchitis, COPD Musculoskeletal: Weakness Renal/: No pertinent hx Endocrine: No pertinent hx Dermatology: No pertinent hx Past Surgical History Past Surgical History: Other Family History Family History: High Cholestrol, Hypertension Social History Smoke: Quit ALCOHOL: rare Drugs: None Current Problem List Problem List Problems Medical Problems: (1) Sepsis due to pneumonia Status: Acute Current Medications Current Medications Current Medications Acetaminophen (Tylenol) 1,000 mg 1X ONCE PO Last administered on 06/14/21at 08:09; Start 06/14/21 at 07:30; Stop 06/14/21 at 07:34; Status DC Sodium Chloride 1,000 ml @ 2,000 mls/hr 1X ONCE IV Last administered on 06/14/21at 08:10; Start 06/14/21 at 07:30; Stop 06/14/21 at 07:59; Status DC Levofloxacin/ Dextrose 150 ml @ 100 mls/hr 1X ONCE IV Last administered on 06/14/21at 08:10; Start 06/14/21 at 08:00; Stop 06/14/21 at 09:29 Vancomycin HCl (Vanco Per Pharmacy) 1 each PRN DAILY PRN [facility] SEE COMMENTS; Start 06/14/21 at 08:00 Vancomycin HCl 1.5 gm/Sodium Chloride 500 ml @ 250 mls/hr 1X ONCE IV ; Start 06/14/21 at 08:00; Stop 06/14/21 at 09:59 Ondansetron HCl (Zofran) 4 mg 1X ONCE IVP Last administered on 06/14/21at 08:07; Start 06/14/21 at 08:00; Stop 06/14/21 at 08:01; Status DC Active Scripts Active Voltaren (Diclofenac Sodium) 100 Gm Gel..gram. 1 Gm TP QID Reported No Known Medications Prior To Admisstion (Info) Each 1 Each MC Allergies Allergies: Coded Allergies: Penicillins (Unverified Allergy, Intermediate, 04/13/14) ROS General: YES: Chills, Fatigue, Malaise, Appetite PSYCHOLOGICAL ROS: No: Anxiety, Behavioral Disorder, Concentration difficultie, Decreased libido, Depression, Disorientation, Hallucinations, Hostility, Irritablity, Memory difficulties, Mood Swings, Obsessive thoughts, Physical abuse, Sexual abuse, Sleep disturbances, Suicidal ideation, Other Eyes: No Blurry vision, No Decreased vision, No Double vision, No Dry eyes, No Excessive tearing, No Eye Pain, No Itchy Eyes, No Loss of vision, No Photophobia, No Scotomata, No Uses contacts, No Uses glasses, No Other HEENT: No: Heacaches, Visual Changes, Hearing change, Nasal congestion, Nasal discharge, Oral lesions, Sinus pain, Sore Throat, Epistaxis, Sneezing, Snoring, Tinnitus, Vertigo, Vocal changes, Other ALLERGY AND IMMUNOLOGY: YES: Hives; No: Insect Bite Sensitivity, Itchy/Watery Eyes, Nasal Congestion, Post Nasal Drip, Seasonal Allergies, Other Hematological and Lymphatic: No: Bleeding Problems, Blood Clots, Blood Transfusions, Brusing, Night Sweats, Pallor, Swollen Lymph Nodes, Other ENDOCRINE: No: Breast Changes, Galactorrhea, Hair Pattern Changes, Hot Flashes, Malaise/lethargy, Mood Swings, Palpitations, Polydipsia/polyuria, Skin Changes, Temperature Intolerance, Unexpected Weight Changes, Other Breast: No New/Changing Breast Lumps, No Nipple changes, No Nipple discharge, No Other Respiratory: YES: Cough, Shortness of breath, SOB with excertion, Sputum Changes; No: Hemoptysis, Orthopnea, Pleuritic Pain, Stridor, Tachypnea, Wheezing, Other Cardiovascular: No Chest Pain, No Palpitations, No Orthopnea, No Paroxysmal Noc. Dyspnea, No Edema, No Lt Headedness, No Other Gastrointestinal: Yes Nausea, Yes Vomiting; No Abdominal Pain, No Diarrhea, No Constipation, No Melena, No Hematochezia, No Other Genitourinary: YES Frequency; No Dysuria, No Incontinence, No Hematuria, No Retention, No Discharge, No Urgency, No Pain, No Flank Pain, No Other, No , No , No , No , No , No , No Musculoskeletal: No Gait Disturbance, No Joint Pain, No Joint Stiffness, No Joint Swelling, No Muscle Pain, No Muscular Weakness, No Pain In:, No Swelling In:, No Other Neurological: No Behavorial Changes, No Bowel/Bladder ControlChng, No Confusion, No Dizziness, No Gait Disturbance, No Headaches, No Impaired Coord/balance, No Memory Loss, No Numbness/Tingling, No Seizures, No Speech Problems, No Tremors, No Visual Changes, No Weakness, No Other Skin: Yes Dry Skin; No Eczema, No Hair Changes, No Lumps, No Mole Changes, No Mottling, No Nail Changes, No Pruritus, No Rash, No Skin Lesion Changes, No Other, No Acne Vitals Vitals Vital Signs Date Time Temp Pulse Resp B/P (MAP) Pulse Ox O2 Delivery O2 Flow Rate FiO2 06/16/21 08:56 72 122/24 06/16/21 08:00 Room Air 06/16/21 07:00 98.4 20 95 98.4 06/15/21 15:00 22.0 Physical Exam Physical Exam HENT: Atraumatic, bilateral external ears normal, nose normal. Eyes: PERRLA, EOMI, conjunctiva normal, no discharge. Neck: Normal range of motion, supple, no stridor. Cardiovascular: Heart rate regular rhythm. 2+ radial pulses Lungs & Thorax: No respiratory distress, symmetrical expansion. Bilateral breath sounds clear to auscultation Skin: Warm, dry. Extremities: No tenderness, no cyanosis, ROM intact, no edema. Neurologic: Alert and oriented X 3, normal motor function, normal sensory function, no focal deficits noted. Non ataxic gait. GCS 15. Psychologic: Affect normal, judgment normal, mood normal. General: Alert, Oriented X3, Cooperative, mild distress HEENT: EOMI, Mucous membr. moist/pink Lungs: Other (rul crackles) Heart: RRR Breasts: Not examined Abdomen: Normal bowel sounds, Soft, Other (obese) PELVIC: Examination not indicated Extremities: No cyanosis Neuro: Normal speech, Strength at 5/5 X4 ext, Cranial nerves 3-12 NL Psych/Mental Status: Mental status NL, Mood NL General: Alert, Oriented X3, Cooperative, No acute distress, mild distress Lungs: Crackles Abdomen: Normal bowel sounds, Soft, Other (obese) Extremities: No clubbing, No cyanosis Labs LABS PATIENT: MARIA ELENA ADAMES ACCOUNT: [id number] : 1955 LOCATION: [address] [place] [address] AGE: 66 SEX: M EXAM STATUS: ADM IN ORD. PHYSICIAN: JOSEF MARTINEZ MD REASON: vomitting/aspiration pna PROCEDURE: CT CHEST ABDOMEN PELVIS WO EXAM: CT Chest, Abdomen and Pelvis without IV contrast CLINICAL HISTORY: Reason: vomitting/aspiration pna / Spl. Instructions: / History: COMPARISON: 04/13/14 TECHNIQUE: Helical CT of the chest, abdomen and pelvis was performed without intravenous contrast. Axial, coronal and sagittal reformatted images were generated. ---PQRS compliance statement - One or more of the following individualized dose reduction techniques were utilized for this study: 1. Automated exposure control 2. Adjustment of the mA and/or kV according to patient size 3. Use of iterative reconstruction technique--- FINDINGS: Lack of intravenous contrast limits evaluation of solid organs, vasculature, and lymph nodes. Chest: Heart is not enlarged. Coronary calcifications. No pericardial effusion. No pleural effusion. No pneumothorax. No axillary lymphadenopathy. A few mildly prominent mediastinal and hilar lymph nodes are seen, possibly reactive. Confluent airspace opacities in the anterior right upper lobe. Background of emphysematous change. 6 mm peripheral right lower lobe lung nodule (image 50) is stable to 04/13/2014. Abdomen and Pelvis: Liver, spleen, adrenal glands and pancreas are unremarkable. Gallbladder is normal. No biliary ductal dilatation. No focal renal lesion. No hydronephrosis. No hydroureter. Bladder is unremarkable. Fat-containing left inguinal hernia is seen. Trace fat-containing periumbilical hernia. Moderate colonic stool content is seen. No small or large bowel dilatation. No bowel obstruction. Appendix is not seen. No abdominal or pelvic ascites. Trace infrarenal aortic ectasia. Bones: Hip joint degenerative changes are seen. Degenerative changes of the lower lumbar spine. Unilateral right L5 pars defect is seen. IMPRESSION: 1. Airspace opacities in the right upper lobe likely consolidative process such as pneumonia. Imaging follow-up to resolution is recommended. 2. Mildly prominent mediastinal and hilar lymph nodes may be reactive, recommend close attention on follow-up. 3. Electronically signed by: Sunil Jimenez MD (06/14/2021 2:50 PM) [id number] DICTATED and SIGNED BY: SUNIL JIMENEZ MD DATE: 06/14/21 [id number] SPEC #: [id number] KAT: 06/14/21 STATUS: RES REQ #: [id number] RECD: 06/14/[address] [facility] [address]: JENNY RUBIO DO SOURCE: BLOOD ENTR: 06/14/[address] [facility] DR: FELECIA SWANN MD SPDESC: ORDERED: BCULT Procedure Result BLOOD CULTURE Preliminary NO GROWTH AFTER 2 DAYS Laboratory Tests Test 06/16/21 08:11 Sodium Level 140 mmol/L (136-145) Potassium Level 4.0 mmol/L (3.5-5.1) Chloride Level 107 mmol/L (98-107) Carbon Dioxide Level 22 mmol/L (21-32) Anion Gap 11 (6-14) Blood Urea Nitrogen 18 mg/dL (8-26) Creatinine 1.4 mg/dL (0.7-1.3) Estimated GFR (Cockcroft-Gault) 50.4 Glucose Level 101 mg/dL (70-99) Calcium Level 9.1 mg/dL (8.5-10.1) Assessment and Plan Assessmemt and Plan Problems Medical Problems: (1) Sepsis due to pneumonia Status: Acute Comment Review of Relevant I have reviewed the following items eusebio (where applicable) has been applied. Labs Laboratory Tests Test 06/15/21 06:10 06/16/21 08:11 White Blood Count 14.7 x10^3/uL (4.0-11.0) Red Blood Count 3.83 x10^6/uL (4.30-5.70) Hemoglobin 12.6 g/dL (13.0-17.5) Hematocrit 37.5 % (39.0-53.0) Mean Corpuscular Volume 98 fL (79-100) Mean Corpuscular Hemoglobin 33 pg (25-35) Mean Corpuscular Hemoglobin Concent 34 g/dL (31-37) Red Cell Distribution Width 14.0 % (11.5-14.5) Platelet Count 159 x10^3/uL (140-400) Neutrophils (%) (Auto) 83 % (31-73) Lymphocytes (%) (Auto) 9 % (24-48) Monocytes (%) (Auto) 7 % (0-9) Eosinophils (%) (Auto) 1 % (0-3) Basophils (%) (Auto) 0 % (0-3) Neutrophils # (Auto) 12.1 x10^3/uL (1.8-7.7) Lymphocytes # (Auto) 1.4 x10^3/uL (1.0-4.8) Monocytes # (Auto) 1.0 x10^3/uL (0.0-1.1) Eosinophils # (Auto) 0.1 x10^3/uL (0.0-0.7) Basophils # (Auto) 0.0 x10^3/uL (0.0-0.2) Sodium Level 142 mmol/L (136-145) 140 mmol/L (136-145) Potassium Level 4.0 mmol/L (3.5-5.1) 4.0 mmol/L (3.5-5.1) Chloride Level 108 mmol/L (98-107) 107 mmol/L (98-107) Carbon Dioxide Level 26 mmol/L (21-32) 22 mmol/L (21-32) Anion Gap 8 (6-14) 11 (6-14) Blood Urea Nitrogen 18 mg/dL (8-26) 18 mg/dL (8-26) Creatinine 1.5 mg/dL (0.7-1.3) 1.4 mg/dL (0.7-1.3) Estimated GFR (Cockcroft-Gault) 46.5 50.4 Glucose Level 90 mg/dL (70-99) 101 mg/dL (70-99) Calcium Level 8.2 mg/dL (8.5-10.1) 9.1 mg/dL (8.5-10.1) Laboratory Tests Test 06/16/21 08:11 Sodium Level 140 mmol/L (136-145) Potassium Level 4.0 mmol/L (3.5-5.1) Chloride Level 107 mmol/L (98-107) Carbon Dioxide Level 22 mmol/L (21-32) Anion Gap 11 (6-14) Blood Urea Nitrogen 18 mg/dL (8-26) Creatinine 1.4 mg/dL (0.7-1.3) Estimated GFR (Cockcroft-Gault) 50.4 Glucose Level 101 mg/dL (70-99) Calcium Level 9.1 mg/dL (8.5-10.1) Microbiology 06/14/21 Blood Culture - Preliminary, Resulted NO GROWTH AFTER 1 DAY Medications Current Medications Acetaminophen (Tylenol) 1,000 mg 1X ONCE PO Last administered on 06/14/21at 08:09; Start 06/14/21 at 07:30; Stop 06/14/21 at 07:34; Status DC Sodium Chloride 1,000 ml @ 2,000 mls/hr 1X ONCE IV Last administered on 06/14/21at 08:10; Start 06/14/21 at 07:30; Stop 06/14/21 at 07:59; Status DC Levofloxacin/ Dextrose 150 ml @ 100 mls/hr 1X ONCE IV Last administered on 06/14/21at 08:10; Start 06/14/21 at 08:00; Stop 06/14/21 at 09:29; Status DC Vancomycin HCl (Vanco Per Pharmacy) 1 each PRN DAILY PRN MC SEE COMMENTS; Start 06/14/21 at 08:00; Stop 06/14/21 at 11:35; Status DC Vancomycin HCl 1.5 gm/Sodium Chloride 500 ml @ 250 mls/hr 1X ONCE IV Last administered on 06/14/21at 11:11; Start 06/14/21 at 08:00; Stop 06/14/21 at 09:59; Status DC Ondansetron HCl (Zofran) 4 mg 1X ONCE IVP Last administered on 06/14/21at 08:07; Start 06/14/21 at 08:00; Stop 06/14/21 at 08:01; Status DC Ondansetron HCl (Zofran) 4 mg PRN Q8HRS PRN IVP NAUSEA/VOMITING; Start 06/14/21 at 09:15; Stop 06/15/21 at 09:14; Status DC Sodium Chloride 1,000 ml @ 125 mls/hr Q8H IV Last administered on 06/15/21at 01:27; Start 06/14/21 at 09:15; Stop 06/15/21 at 09:14; Status DC Acetaminophen (Tylenol) 650 mg PRN Q4HRS PRN PO FEVER > 100.3'F; Start 06/14/21 at 09:15; Stop 06/15/21 at 09:14; Status DC Sodium Chloride (Normal Saline Flush) 3 ml QSHIFT PRN IV AFTER MEDS AND BLOOD DRAWS; Start 06/14/21 at 11:30 Ondansetron HCl (Zofran) 4 mg PRN Q4HRS PRN IV NAUSEA/VOMITING; Start 06/14/21 at 11:30 Acetaminophen (Tylenol) 650 mg PRN Q4HRS PRN PO TEMP OVER 100.4F OR MILD PAIN; Start 06/14/21 at 11:30 Al Hydroxide/Mg Hydroxide (Mylanta Plus Xs) 30 ml PRN DAILY PRN PO HEARTBURN / GAS Last administered on 06/15/21at 22:12; Start 06/14/21 at 11:30 Sodium Monofluorophosphate (Fleet Adult) 133 ml PRN DAILY PRN MI CONSTIPATION; Start 06/14/21 at 11:30 Docusate Sodium (Colace) 100 mg PRN BID PRN PO HARD STOOLS; Start 06/14/21 at 11:30 Albuterol/ Ipratropium (Duoneb) 3 ml Q4H NEB ; Start 06/14/21 at 11:30; Stop 06/14/21 at 15:26; Status DC Guaifenesin (Robitussin) 200 mg PRN Q4HRS PRN PO COUGH; Start 06/14/21 at 11:30 Lorazepam (Ativan) 0.5 mg PRN Q4HRS PRN PO ANXIETY / AGITATION; Start 06/14/21 at 11:30 Enoxaparin Sodium (Lovenox 40mg Syringe) 40 mg Q24H SQ Last administered on 06/16/21at 11:29; Start 06/14/21 at 11:30 Levofloxacin/ Dextrose 100 ml @ 100 mls/hr Q24H IV Last administered on 06/16/21at 08:57; Start 06/14/21 at 12:00 Vancomycin HCl (Vanco Per Pharmacy) 1 each PRN DAILY PRN MC SEE COMMENTS; Start 06/14/21 at 11:30; Status UNV Atorvastatin Calcium (Lipitor) 10 mg DAILY PO Last administered on 06/16/21at 08:56; Start 06/14/21 at 14:30 Doxazosin Mesylate (Cardura) 4 mg DAILY PO Last administered on 06/16/21 08:56; Start 06/14/21 at 14:30 Acetaminophen/ Butalbital/ Caffeine (Fioricet) 1 tab PRN Q4HRS PRN PO MIGRAINE HEADACHE Last administered on 06/16/21at 11:26; Start 06/14/21 at 14:15 Pantoprazole Sodium (Protonix) 40 mg DAILYAC PO Last administered on 06/16/21at 05:23; Start 06/15/21 at 07:30 Albuterol/ Ipratropium (Duoneb) 3 ml PRN Q4HRS PRN NEB SHORTNESS OF BREATH; Start 06/14/21 at 15:30 Lactobacillus Rhamnosus (Culturelle) 1 cap BID PO Last administered on 06/16/21at 08:56; Start 06/15/21 at 13:00 Active Scripts Active Reported Atorvastatin Calcium 10 Mg Tablet 10 Mg PO DAILY Tbfnbt-Diymkorb-Zjor 50-300-40 (Butalb/Acetaminophen/Caffeine) 1 Each Capsule 1 Cap PO PRN Q4HRS PRN Doxazosin Mesylate 4 Mg Tablet 1 Tab PO DAILY Omeprazole 40 Mg Capsule. 1 Cap PO DAILY Vitals/I & O Vital Sign - Last 24 Hours 06/15/21 06/15/21 06/15/21 06/15/21 15:00 19:00 20:00 23:17 Temp 97.7 98.6 98.6 97.7 98.6 98.6 Pulse 75 79 62 Resp 16 16 16 B/P (MAP) 120/75 (90) 134/73 (93) 125/62 (83) Pulse Ox 99 96 99 O2 Delivery Nasal Cannula Room Air Room Air Room Air O2 Flow Rate 22.0 06/16/21 06/16/21 06/16/21 06/16/21 03:00 07:00 08:00 08:56 Temp 98.3 98.4 98.3 98.4 Pulse 81 72 72 Resp 16 20 B/P (MAP) 114/56 (75) 122/24 (56) 122/24 Pulse Ox 96 95 O2 Delivery Room Air Room Air Room Air Intake and Output 06/15/21 06/15/21 06/16/21 15:00 23:00 07:00 Intake Total 1280 ml 400 ml 270 ml Balance 1280 ml 400 ml 270 ml Justicifation of Admission Dx: Justifications for Admission: Justification of Admission Dx: Yes Sepsis: Hypoxemia KARL JIMENEZ MD Jun 16, 2021 11:32
--- NOTE | 2021-06-16 12:47 | PDOC ---
PROGRESS NOTES Date of Service DATE: 06/16/21 TIME: 12:45 Subjective Subjective SEEN IN FOLLOW UP OF ARF ON CKD Objective Objective Vital Signs Date Time Temp Pulse Resp B/P (MAP) Pulse Ox O2 Delivery O2 Flow Rate FiO2 06/16/21 08:56 72 122/24 06/16/21 08:00 Room Air 06/16/21 07:00 98.4 20 95 98.4 06/15/21 15:00 22.0 Intake and Output 06/16/21 07:00 Intake Total 1950 ml Balance 1950 ml Intake Oral 850 ml IV Total 1100 ml # Voids 2 Physical Exam Heart: Regular rate, Normal S1, Normal S2, No murmurs, Gallops Extremities: No clubbing, No cyanosis, No edema, Normal pulses, No tenderness/swelling General: Alert Lungs: Clear to auscultation, Normal air movement Diagnosis RENAL FAILURE: Acute (DEHYDRATION), Chronic (CKD stage III) Assessment Assessment Problems Medical Problems: (1) Sepsis due to pneumonia Status: Acute Plan Plan of Care DEHYDRATION IS BETTER. CONT FLUID BALANCE. WILL SIGN OFF Comment Review of Relevant I have reviewed the following items eusebio (where applicable) has been applied. Labs Laboratory Tests Test 06/15/21 06:10 06/16/21 08:11 White Blood Count 14.7 x10^3/uL (4.0-11.0) Red Blood Count 3.83 x10^6/uL (4.30-5.70) Hemoglobin 12.6 g/dL (13.0-17.5) Hematocrit 37.5 % (39.0-53.0) Mean Corpuscular Volume 98 fL (79-100) Mean Corpuscular Hemoglobin 33 pg (25-35) Mean Corpuscular Hemoglobin Concent 34 g/dL (31-37) Red Cell Distribution Width 14.0 % (11.5-14.5) Platelet Count 159 x10^3/uL (140-400) Neutrophils (%) (Auto) 83 % (31-73) Lymphocytes (%) (Auto) 9 % (24-48) Monocytes (%) (Auto) 7 % (0-9) Eosinophils (%) (Auto) 1 % (0-3) Basophils (%) (Auto) 0 % (0-3) Neutrophils # (Auto) 12.1 x10^3/uL (1.8-7.7) Lymphocytes # (Auto) 1.4 x10^3/uL (1.0-4.8) Monocytes # (Auto) 1.0 x10^3/uL (0.0-1.1) Eosinophils # (Auto) 0.1 x10^3/uL (0.0-0.7) Basophils # (Auto) 0.0 x10^3/uL (0.0-0.2) Sodium Level 142 mmol/L (136-145) 140 mmol/L (136-145) Potassium Level 4.0 mmol/L (3.5-5.1) 4.0 mmol/L (3.5-5.1) Chloride Level 108 mmol/L (98-107) 107 mmol/L (98-107) Carbon Dioxide Level 26 mmol/L (21-32) 22 mmol/L (21-32) Anion Gap 8 (6-14) 11 (6-14) Blood Urea Nitrogen 18 mg/dL (8-26) 18 mg/dL (8-26) Creatinine 1.5 mg/dL (0.7-1.3) 1.4 mg/dL (0.7-1.3) Estimated GFR (Cockcroft-Gault) 46.5 50.4 Glucose Level 90 mg/dL (70-99) 101 mg/dL (70-99) Calcium Level 8.2 mg/dL (8.5-10.1) 9.1 mg/dL (8.5-10.1) Laboratory Tests Test 06/16/21 08:11 Sodium Level 140 mmol/L (136-145) Potassium Level 4.0 mmol/L (3.5-5.1) Chloride Level 107 mmol/L (98-107) Carbon Dioxide Level 22 mmol/L (21-32) Anion Gap 11 (6-14) Blood Urea Nitrogen 18 mg/dL (8-26) Creatinine 1.4 mg/dL (0.7-1.3) Estimated GFR (Cockcroft-Gault) 50.4 Glucose Level 101 mg/dL (70-99) Calcium Level 9.1 mg/dL (8.5-10.1) Microbiology 06/14/21 Blood Culture - Preliminary, Resulted NO GROWTH AFTER 2 DAYS Medications Current Medications Acetaminophen (Tylenol) 1,000 mg 1X ONCE PO Last administered on 06/14/21at 08:09; Start 06/14/21 at 07:30; Stop 06/14/21 at 07:34; Status DC Sodium Chloride 1,000 ml @ 2,000 mls/hr 1X ONCE IV Last administered on 06/14/21at 08:10; Start 06/14/21 at 07:30; Stop 06/14/21 at 07:59; Status DC Levofloxacin/ Dextrose 150 ml @ 100 mls/hr 1X ONCE IV Last administered on 06/14/21at 08:10; Start 06/14/21 at 08:00; Stop 06/14/21 at 09:29; Status DC Vancomycin HCl (Vanco Per Pharmacy) 1 each PRN DAILY PRN [facility] SEE COMMENTS; Start 06/14/21 at 08:00; Stop 06/14/21 at 11:35; Status DC Vancomycin HCl 1.5 gm/Sodium Chloride 500 ml @ 250 mls/hr 1X ONCE IV Last administered on 06/14/21at 11:11; Start 06/14/21 at 08:00; Stop 06/14/21 at 09:59; Status DC Ondansetron HCl (Zofran) 4 mg 1X ONCE IVP Last administered on 06/14/21at 08:07; Start 06/14/21 at 08:00; Stop 06/14/21 at 08:01; Status DC Ondansetron HCl (Zofran) 4 mg PRN Q8HRS PRN IVP NAUSEA/VOMITING; Start 06/14/21 at 09:15; Stop 06/15/21 at 09:14; Status DC Sodium Chloride 1,000 ml @ 125 mls/hr Q8H IV Last administered on 06/15/21at 01:27; Start 06/14/21 at 09:15; Stop 06/15/21 at 09:14; Status DC Acetaminophen (Tylenol) 650 mg PRN Q4HRS PRN PO FEVER > 100.3'F; Start 06/14/21 at 09:15; Stop 06/15/21 at 09:14; Status DC Sodium Chloride (Normal Saline Flush) 3 ml QSHIFT PRN IV AFTER MEDS AND BLOOD DRAWS; Start 06/14/21 at 11:30 Ondansetron HCl (Zofran) 4 mg PRN Q4HRS PRN IV NAUSEA/VOMITING; Start 06/14/21 at 11:30 Acetaminophen (Tylenol) 650 mg PRN Q4HRS PRN PO TEMP OVER 100.4F OR MILD PAIN; Start 06/14/21 at 11:30 Al Hydroxide/Mg Hydroxide (Mylanta Plus Xs) 30 ml PRN DAILY PRN PO HEARTBURN / GAS Last administered on 06/15/21at 22:12; Start 06/14/21 at 11:30 Sodium Monofluorophosphate (Fleet Adult) 133 ml PRN DAILY PRN [place] CONSTIPATION; Start 06/14/21 at 11:30 Docusate Sodium (Colace) 100 mg PRN BID PRN PO HARD STOOLS; Start 06/14/21 at 11:30 Albuterol/ Ipratropium (Duoneb) 3 ml Q4H NEB ; Start 06/14/21 at 11:30; Stop 06/14/21 at 15:26; Status DC Guaifenesin (Robitussin) 200 mg PRN Q4HRS PRN PO COUGH; Start 06/14/21 at 11:30 Lorazepam (Ativan) 0.5 mg PRN Q4HRS PRN PO ANXIETY / AGITATION; Start 06/14/21 at 11:30 Enoxaparin Sodium (Lovenox 40mg Syringe) 40 mg Q24H SQ Last administered on 06/16/21at 11:29; Start 06/14/21 at 11:30 Levofloxacin/ Dextrose 100 ml @ 100 mls/hr Q24H IV Last administered on 06/16/21at 08:57; Start 06/14/21 at 12:00 Vancomycin HCl (Vanco Per Pharmacy) 1 each PRN DAILY PRN MC SEE COMMENTS; Start 06/14/21 at 11:30; Status UNV Atorvastatin Calcium (Lipitor) 10 mg DAILY PO Last administered on 06/16/21at 08:56; Start 06/14/21 at 14:30 Doxazosin Mesylate (Cardura) 4 mg DAILY PO Last administered on 06/16/21at 08:56; Start 06/14/21 at 14:30 Acetaminophen/ Butalbital/ Caffeine (Fioricet) 1 tab PRN Q4HRS PRN PO MIGRAINE HEADACHE Last administered on 06/16/21at 11:26; Start 06/14/21 at 14:15 Pantoprazole Sodium (Protonix) 40 mg DAILYAC PO Last administered on 06/16/21at 05:23; Start 06/15/21 at 07:30 Albuterol/ Ipratropium (Duoneb) 3 ml PRN Q4HRS PRN NEB SHORTNESS OF BREATH; Start 06/14/21 at 15:30 Lactobacillus Rhamnosus (Culturelle) 1 cap BID PO Last administered on 06/16/21at 08:56; Start 06/15/21 at 13:00 Active Scripts Active Reported Atorvastatin Calcium 10 Mg Tablet 10 Mg PO DAILY [id number] 50-300-40 (Butalb/Acetaminophen/Caffeine) 1 Each Capsule 1 Cap PO PRN Q4HRS PRN Doxazosin Mesylate 4 Mg Tablet 1 Tab PO DAILY Omeprazole 40 Mg Capsule. 1 Cap PO DAILY Vitals/I & O Vital Sign - Last 24 Hours 06/15/21 06/15/21 06/15/21 06/15/21 15:00 19:00 20:00 23:17 Temp 97.7 98.6 98.6 97.7 98.6 98.6 Pulse 75 79 62 Resp 16 16 16 B/P (MAP) 120/75 (90) 134/73 (93) 125/62 (83) Pulse Ox 99 96 99 O2 Delivery Nasal Cannula Room Air Room Air Room Air O2 Flow Rate 22.0 06/16/21 06/16/21 06/16/21 06/16/21 03:00 07:00 08:00 08:56 Temp 98.3 98.4 98.3 98.4 Pulse 81 72 72 Resp 16 20 B/P (MAP) 114/56 (75) 122/24 (56) 122/24 Pulse Ox 96 95 O2 Delivery Room Air Room Air Room Air Intake and Output 06/15/21 06/15/21 06/16/21 15:00 23:00 07:00 Intake Total 1280 ml 400 ml 270 ml Balance 1280 ml 400 ml 270 ml Justifications for Admission Other Justification sepsis FRANNIE AMOS MD Jun 16, 2021 12:47
[2021-06-16] MEDS ORDERED: SODIUM CHLORIDE 0.65% NASAL SPRAY 45ML BOTTLE. NS PRN (13:00)
--- NOTE | 2021-06-16 13:12 | PDOC ---
Infectious Disease Note Subjective Subjective feeling much better ROS ROS no n/v/d/sob Vital Sign Vital Signs Vital Signs Date Time Temp Pulse Resp B/P (MAP) Pulse Ox O2 Delivery O2 Flow Rate FiO2 06/16/21 11:00 98.3 68 18 116/74 (88) 97 Nasal Cannula 2.5 98.3 Physical Exam PHYSICAL EXAM GENERAL: Alert, oriented gentleman, not in distress. HEENT: NAD. NECK: Supple, no JVP, no lymphadenopathy. LUNGS: Clear. HEART: S1, S2 regular. ABDOMEN: Benign. EXTREMITIES: No edema, cyanosis. SKIN: Unremarkable. NEUROLOGIC: The patient is alert, awake, and appropriate. No focal neurologic deficit. Labs Lab Laboratory Tests Test 06/16/21 08:11 Sodium Level 140 mmol/L (136-145) Potassium Level 4.0 mmol/L (3.5-5.1) Chloride Level 107 mmol/L (98-107) Carbon Dioxide Level 22 mmol/L (21-32) Anion Gap 11 (6-14) Blood Urea Nitrogen 18 mg/dL (8-26) Creatinine 1.4 mg/dL (0.7-1.3) Estimated GFR (Cockcroft-Gault) 50.4 Glucose Level 101 mg/dL (70-99) Calcium Level 9.1 mg/dL (8.5-10.1) Micro Microbiology 06/14/21 Blood Culture - Preliminary, Resulted NO GROWTH AFTER 2 DAYS Objective Assessment 1. Aspiration pneumonia. 2. Fever. 3. Leukocytosis. 4. Nausea, vomiting, diarrhea/gastroenteritis. 5. Chronic obstructive pulmonary disease. Plan Plan of Care continue levofloxacin, supportive care ok to d/c on po FARTUN Mukherjee MD Jun 16, 2021 13:12
[2021-06-16 15:00] VITALS: BP 111/65
[2021-06-16 19:45] VITALS: BP 129/73
[2021-06-16] MEDS: MAG HYDROX/ALUMINUM HYD/SIMETH 30 ML ORAL.SUSP PO PRN (20:04)
[2021-06-16 23:12] VITALS: BP 125/71
[2021-06-17 03:08] VITALS: BP 125/73
[2021-06-17] MEDS: PANTOPRAZOLE 40 MG TABLET.DR. PO SCH (05:11)
[2021-06-17 07:00] VITALS: BP 136/76
[2021-06-17] MEDS: ATORVASTATIN CALCIUM 10 MG TABLET. PO SCH (08:16)
[2021-06-17] MEDS: LACTOBACILLUS RHAMNOSUS GG 1 CAPSULE. PO SCH (08:16)
[2021-06-17] MEDS: DOXAZOSIN MESYLATE 4 MG TABLET. PO SCH (08:17)
[2021-06-17 09:02] LABS: BASO % 0 % (0-3); EOS # 0.1 x10^3/uL (0.0-0.7); EOS % 1 % (0-3); HEMATOCRIT 43.3 % (39.0-53.0); LYMPH # 1.1 x10^3/uL (1.0-4.8); LYMPH % 18 % (24-48); MEAN CORPUSCULAR HEMOGLOBIN 34 pg (25-35); MEAN CORPUSCULAR HGB CONC 35 g/dL (31-37); MEAN CORPUSCULAR VOLUME 97 fL (79-100); MONO # 0.6 x10^3/uL (0.0-1.1); MONO % 10 % (0-9); NEUT # 4.2 x10^3/uL (1.8-7.7); NEUT % 70 % (31-73); PLATELET COUNT 200 x10^3/uL (140-400); RED BLOOD COUNT 4.49 x10^6/uL (4.30-5.70); RED CELL DISTRIBUTION WIDTH 13.6 % (11.5-14.5)
[2021-06-17 09:21] LABS: CALCIUM 9.2 mg/dL (8.5-10.1); CREATININE 1.4 mg/dL (0.7-1.3); GFR 50.4; POTASSIUM 4.2 mmol/L (3.5-5.1)
[2021-06-17] MEDS: BUTALB/APAP/CAFEIN 50/325/40MG TABLET. PO PRN ×2 (10:42→14:47)
[2021-06-17 11:00] VITALS: BP 125/70
--- NOTE | 2021-06-17 11:01 | PDOC ---
PROGRESS NOTES Date of Service: DATE: 06/17/21 TIME: 11:00 Chief Complaint Chief Complaint mpression: 1. Right upper lobe consolidation, concerning for pneumonia. Recommend follow- up to ensure resolution. Electronically signed by: Jose Centeno DO (06/14/2021 8:07 AM) [id number] DICTATED and SIGNED BY: JOSE CENTENO DO DATE: 06/14/21 [id number] VTE Prophylaxis Ordered VTE Prophylaxis Devices: Yes VTE Pharmacological Prophylaxi: Yes Assessment/Plan Assessment/Plan mpression: 1. Right upper lobe consolidation, c/w pneumonia possible gram neg, gram pos 2. acute hypoxis resp failure 3. COPD WITH ACUTE EXAC 4. Sepsis due to pneumonia 5. CIARA 6. HX TOBACCO ABUSE, remote 2019 cessation ADMITTED PLAN ADMIT ID CONSULT BLOOD CULT IV LEVAQUIN, d/c VANC due to ciara / Recommend continue levofloxacin, supportive care dvt prophylaxis 'duonebs qid prn q [address] Kidneys and Bladder Unremarkable . Renal function improving CR BETTER AT 1.5 d/c home 06-17 planned planning time 32 min ok to d/c on po levaquin D/W RN Justifications for Admission Justifications for Admission Other Justification History of Present Illness History of Present Illness Identification/Chief Complaint Chief Complaint sob, fever, cough onset today History of Present Illness History of Present Illness 66-year-old male presented to the emergency department with symptoms including fever, chills, fatigue, cough, nausea, vomiting, diarrhea for the past 24 hours which have been getting worse. 11 episodes of vomiting and diarrhea that has been nonbloody and nonbilious. noted fever since this morning that he has not treated at home. was vaccinated for COVID-19, states that he feels extremely nauseated, very thirsty and dehydrated. cxr c/w rul infiltrate some shortness of breath. stopped smoking last year denies chest pain, abdominal pain, urinary symptoms, recent trauma, or any other complaints. penicillin allergy, which he describes as syncope. Past Medical History Past Medical History Past Medical History Past Medical History: Pancreatitis Past Surgical History: Appendectomy, Tonsillectomy, Other Additional Past Surgical Histo: colonoscopy Smoking Status: stopped 2019 Alcohol Use: Rarely Drug Use: None FHX COPD Cardiovascular: No pertinent hx Pulmonary: No pertinent hx, Bronchitis, COPD Musculoskeletal: Weakness Renal/: No pertinent hx Endocrine: No pertinent hx Dermatology: No pertinent hx Past Surgical History Past Surgical History: Other Family History Family History: High Cholestrol, Hypertension Social History Smoke: Quit ALCOHOL: rare Drugs: None Current Problem List Problem List Problems Medical Problems: (1) Sepsis due to pneumonia Status: Acute Current Medications Current Medications Current Medications Acetaminophen (Tylenol) 1,000 mg 1X ONCE PO Last administered on 06/14/21at 08:09; Start 06/14/21 at 07:30; Stop 06/14/21 at 07:34; Status DC Sodium Chloride 1,000 ml @ 2,000 mls/hr 1X ONCE IV Last administered on 06/14/21at 08:10; Start 06/14/21 at 07:30; Stop 06/14/21 at 07:59; Status DC Levofloxacin/ Dextrose 150 ml @ 100 mls/hr 1X ONCE IV Last administered on 06/14/21at 08:10; Start 06/14/21 at 08:00; Stop 06/14/21 at 09:29 Vancomycin HCl (Vanco Per Pharmacy) 1 each PRN DAILY PRN [facility] SEE COMMENTS; Start 06/14/21 at 08:00 Vancomycin HCl 1.5 gm/Sodium Chloride 500 ml @ 250 mls/hr 1X ONCE IV ; Start 06/14/21 at 08:00; Stop 06/14/21 at 09:59 Ondansetron HCl (Zofran) 4 mg 1X ONCE IVP Last administered on 06/14/21at 08:07; Start 06/14/21 at 08:00; Stop 06/14/21 at 08:01; Status DC Active Scripts Active Voltaren (Diclofenac Sodium) 100 Gm Gel..gram. 1 Gm TP QID Reported No Known Medications Prior To Admisstion (Info) Each 1 Each MC Allergies Allergies: Coded Allergies: Penicillins (Unverified Allergy, Intermediate, 04/13/14) ROS General: YES: Chills, Fatigue, Malaise, Appetite PSYCHOLOGICAL ROS: No: Anxiety, Behavioral Disorder, Concentration difficultie, Decreased libido, Depression, Disorientation, Hallucinations, Hostility, Irritablity, Memory difficulties, Mood Swings, Obsessive thoughts, Physical abuse, Sexual abuse, Sleep disturbances, Suicidal ideation, Other Eyes: No Blurry vision, No Decreased vision, No Double vision, No Dry eyes, No Excessive tearing, No Eye Pain, No Itchy Eyes, No Loss of vision, No Photophobia, No Scotomata, No Uses contacts, No Uses glasses, No Other HEENT: No: Heacaches, Visual Changes, Hearing change, Nasal congestion, Nasal discharge, Oral lesions, Sinus pain, Sore Throat, Epistaxis, Sneezing, Snoring, Tinnitus, Vertigo, Vocal changes, Other ALLERGY AND IMMUNOLOGY: YES: Hives; No: Insect Bite Sensitivity, Itchy/Watery Eyes, Nasal Congestion, Post Nasal Drip, Seasonal Allergies, Other Hematological and Lymphatic: No: Bleeding Problems, Blood Clots, Blood Transfusions, Brusing, Night Sweats, Pallor, Swollen Lymph Nodes, Other ENDOCRINE: No: Breast Changes, Galactorrhea, Hair Pattern Changes, Hot Flashes, Malaise/lethargy, Mood Swings, Palpitations, Polydipsia/polyuria, Skin Changes, Temperature Intolerance, Unexpected Weight Changes, Other Breast: No New/Changing Breast Lumps, No Nipple changes, No Nipple discharge, No Other Respiratory: YES: Cough, Shortness of breath, SOB with excertion, Sputum Changes; No: Hemoptysis, Orthopnea, Pleuritic Pain, Stridor, Tachypnea, Wheezing, Other Cardiovascular: No Chest Pain, No Palpitations, No Orthopnea, No Paroxysmal Noc. Dyspnea, No Edema, No Lt Headedness, No Other Gastrointestinal: Yes Nausea, Yes Vomiting; No Abdominal Pain, No Diarrhea, No Constipation, No Melena, No Hematochezia, No Other Genitourinary: YES Frequency; No Dysuria, No Incontinence, No Hematuria, No Retention, No Discharge, No Urgency, No Pain, No Flank Pain, No Other, No , No , No , No , No , No , No Musculoskeletal: No Gait Disturbance, No Joint Pain, No Joint Stiffness, No Joint Swelling, No Muscle Pain, No Muscular Weakness, No Pain In:, No Swelling In:, No Other Neurological: No Behavorial Changes, No Bowel/Bladder ControlChng, No Confusion, No Dizziness, No Gait Disturbance, No Headaches, No Impaired Coord/balance, No Memory Loss, No Numbness/Tingling, No Seizures, No Speech Problems, No Tremors, No Visual Changes, No Weakness, No Other Skin: Yes Dry Skin; No Eczema, No Hair Changes, No Lumps, No Mole Changes, No Mottling, No Nail Changes, No Pruritus, No Rash, No Skin Lesion Changes, No Other, No Acne Vitals Vitals Vital Signs Date Time Temp Pulse Resp B/P (MAP) Pulse Ox O2 Delivery O2 Flow Rate FiO2 06/17/21 08:17 77 136/76 06/17/21 07:00 98.1 20 95 Room Air 98.1 06/16/21 11:00 2.5 Physical Exam Physical Exam GENERAL: Alert, oriented gentleman, not in distress. HEENT: NAD. NECK: Supple, no JVP, no lymphadenopathy. LUNGS: Clear. HEART: S1, S2 regular. ABDOMEN: Benign. EXTREMITIES: No edema, cyanosis. SKIN: Unremarkable. NEUROLOGIC: The patient is alert, awake, and appropriate. No focal neurologic deficit. General: Alert, Oriented X3, Cooperative, No acute distress Heart: Regular rate, Normal S1, Normal S2, No murmurs, Gallops Lungs: Crackles Abdomen: Normal bowel sounds, Soft, No tenderness, Other (obese) Extremities: No clubbing, No cyanosis, No edema, Normal pulses, No tenderness/swelling Skin: No significant lesion Labs LABS Laboratory Tests Test 06/17/21 08:23 White Blood Count 6.0 x10^3/uL (4.0-11.0) Red Blood Count 4.49 x10^6/uL (4.30-5.70) Hemoglobin 15.0 g/dL (13.0-17.5) Hematocrit 43.3 % (39.0-53.0) Mean Corpuscular Volume 97 fL (79-100) Mean Corpuscular Hemoglobin 34 pg (25-35) Mean Corpuscular Hemoglobin Concent 35 g/dL (31-37) Red Cell Distribution Width 13.6 % (11.5-14.5) Platelet Count 200 x10^3/uL (140-400) Neutrophils (%) (Auto) 70 % (31-73) Lymphocytes (%) (Auto) 18 % (24-48) Monocytes (%) (Auto) 10 % (0-9) Eosinophils (%) (Auto) 1 % (0-3) Basophils (%) (Auto) 0 % (0-3) Neutrophils # (Auto) 4.2 x10^3/uL (1.8-7.7) Lymphocytes # (Auto) 1.1 x10^3/uL (1.0-4.8) Monocytes # (Auto) 0.6 x10^3/uL (0.0-1.1) Eosinophils # (Auto) 0.1 x10^3/uL (0.0-0.7) Basophils # (Auto) 0.0 x10^3/uL (0.0-0.2) Sodium Level 142 mmol/L (136-145) Potassium Level 4.2 mmol/L (3.5-5.1) Chloride Level 106 mmol/L (98-107) Carbon Dioxide Level 29 mmol/L (21-32) Anion Gap 7 (6-14) Blood Urea Nitrogen 18 mg/dL (8-26) Creatinine 1.4 mg/dL (0.7-1.3) Estimated GFR (Cockcroft-Gault) 50.4 Glucose Level 101 mg/dL (70-99) Calcium Level 9.2 mg/dL (8.5-10.1) Assessment and Plan Assessmemt and Plan Problems Medical Problems: (1) Sepsis due to pneumonia Status: Acute Comment Review of Relevant I have reviewed the following items eusebio (where applicable) has been applied. Labs Laboratory Tests Test 06/16/21 08:11 06/17/21 08:23 Sodium Level 140 mmol/L (136-145) 142 mmol/L (136-145) Potassium Level 4.0 mmol/L (3.5-5.1) 4.2 mmol/L (3.5-5.1) Chloride Level 107 mmol/L (98-107) 106 mmol/L (98-107) Carbon Dioxide Level 22 mmol/L (21-32) 29 mmol/L (21-32) Anion Gap 11 (6-14) 7 (6-14) Blood Urea Nitrogen 18 mg/dL (8-26) 18 mg/dL (8-26) Creatinine 1.4 mg/dL (0.7-1.3) 1.4 mg/dL (0.7-1.3) Estimated GFR (Cockcroft-Gault) 50.4 50.4 Glucose Level 101 mg/dL (70-99) 101 mg/dL (70-99) Calcium Level 9.1 mg/dL (8.5-10.1) 9.2 mg/dL (8.5-10.1) White Blood Count 6.0 x10^3/uL (4.0-11.0) Red Blood Count 4.49 x10^6/uL (4.30-5.70) Hemoglobin 15.0 g/dL (13.0-17.5) Hematocrit 43.3 % (39.0-53.0) Mean Corpuscular Volume 97 fL (79-100) Mean Corpuscular Hemoglobin 34 pg (25-35) Mean Corpuscular Hemoglobin Concent 35 g/dL (31-37) Red Cell Distribution Width 13.6 % (11.5-14.5) Platelet Count 200 x10^3/uL (140-400) Neutrophils (%) (Auto) 70 % (31-73) Lymphocytes (%) (Auto) 18 % (24-48) Monocytes (%) (Auto) 10 % (0-9) Eosinophils (%) (Auto) 1 % (0-3) Basophils (%) (Auto) 0 % (0-3) Neutrophils # (Auto) 4.2 x10^3/uL (1.8-7.7) Lymphocytes # (Auto) 1.1 x10^3/uL (1.0-4.8) Monocytes # (Auto) 0.6 x10^3/uL (0.0-1.1) Eosinophils # (Auto) 0.1 x10^3/uL (0.0-0.7) Basophils # (Auto) 0.0 x10^3/uL (0.0-0.2) Laboratory Tests Test 06/17/21 08:23 White Blood Count 6.0 x10^3/uL (4.0-11.0) Red Blood Count 4.49 x10^6/uL (4.30-5.70) Hemoglobin 15.0 g/dL (13.0-17.5) Hematocrit 43.3 % (39.0-53.0) Mean Corpuscular Volume 97 fL (79-100) Mean Corpuscular Hemoglobin 34 pg (25-35) Mean Corpuscular Hemoglobin Concent 35 g/dL (31-37) Red Cell Distribution Width 13.6 % (11.5-14.5) Platelet Count 200 x10^3/uL (140-400) Neutrophils (%) (Auto) 70 % (31-73) Lymphocytes (%) (Auto) 18 % (24-48) Monocytes (%) (Auto) 10 % (0-9) Eosinophils (%) (Auto) 1 % (0-3) Basophils (%) (Auto) 0 % (0-3) Neutrophils # (Auto) 4.2 x10^3/uL (1.8-7.7) Lymphocytes # (Auto) 1.1 x10^3/uL (1.0-4.8) Monocytes # (Auto) 0.6 x10^3/uL (0.0-1.1) Eosinophils # (Auto) 0.1 x10^3/uL (0.0-0.7) Basophils # (Auto) 0.0 x10^3/uL (0.0-0.2) Sodium Level 142 mmol/L (136-145) Potassium Level 4.2 mmol/L (3.5-5.1) Chloride Level 106 mmol/L (98-107) Carbon Dioxide Level 29 mmol/L (21-32) Anion Gap 7 (6-14) Blood Urea Nitrogen 18 mg/dL (8-26) Creatinine 1.4 mg/dL (0.7-1.3) Estimated GFR (Cockcroft-Gault) 50.4 Glucose Level 101 mg/dL (70-99) Calcium Level 9.2 mg/dL (8.5-10.1) Microbiology 06/14/21 Blood Culture - Preliminary, Resulted NO GROWTH AFTER 2 DAYS Medications Current Medications Acetaminophen (Tylenol) 1,000 mg 1X ONCE PO Last administered on 06/14/21at 08:09; Start 06/14/21 at 07:30; Stop 06/14/21 at 07:34; Status DC Sodium Chloride 1,000 ml @ 2,000 mls/hr 1X ONCE IV Last administered on 06/14/21at 08:10; Start 06/14/21 at 07:30; Stop 06/14/21 at 07:59; Status DC Levofloxacin/ Dextrose 150 ml @ 100 mls/hr 1X ONCE IV Last administered on 06/14/21at 08:10; Start 06/14/21 at 08:00; Stop 06/14/21 at 09:29; Status DC Vancomycin HCl (Vanco Per Pharmacy) 1 each PRN DAILY PRN [facility] SEE COMMENTS; Start 06/14/21 at 08:00; Stop 06/14/21 at 11:35; Status DC Vancomycin HCl 1.5 gm/Sodium Chloride 500 ml @ 250 mls/hr 1X ONCE IV Last administered on 06/14/21at 11:11; Start 06/14/21 at 08:00; Stop 06/14/21 at 09:59; Status DC Ondansetron HCl (Zofran) 4 mg 1X ONCE IVP Last administered on 06/14/21at 08:07; Start 06/14/21 at 08:00; Stop 06/14/21 at 08:01; Status DC Ondansetron HCl (Zofran) 4 mg PRN Q8HRS PRN IVP NAUSEA/VOMITING; Start 06/14/21 at 09:15; Stop 06/15/21 at 09:14; Status DC Sodium Chloride 1,000 ml @ 125 mls/hr Q8H IV Last administered on 06/15/21at 01:27; Start 06/14/21 at 09:15; Stop 06/15/21 at 09:14; Status DC Acetaminophen (Tylenol) 650 mg PRN Q4HRS PRN PO FEVER > 100.3'F; Start 06/14/21 at 09:15; Stop 06/15/21 at 09:14; Status DC Sodium Chloride (Normal Saline Flush) 3 ml QSHIFT PRN IV AFTER MEDS AND BLOOD DRAWS; Start 06/14/21 at 11:30 Ondansetron HCl (Zofran) 4 mg PRN Q4HRS PRN IV NAUSEA/VOMITING; Start 06/14/21 at 11:30 Acetaminophen (Tylenol) 650 mg PRN Q4HRS PRN PO TEMP OVER 100.4F OR MILD PAIN; Start 06/14/21 at 11:30 Al Hydroxide/Mg Hydroxide (Mylanta Plus Xs) 30 ml PRN DAILY PRN PO HEARTBURN / GAS Last administered on 06/16/21at 20:04; Start 06/14/21 at 11:30 Sodium Monofluorophosphate (Fleet Adult) 133 ml PRN DAILY PRN [place] CONSTIPATION; Start 06/14/21 at 11:30 Docusate Sodium (Colace) 100 mg PRN BID PRN PO HARD STOOLS; Start 06/14/21 at 11:30 Albuterol/ Ipratropium (Duoneb) 3 ml Q4H NEB ; Start 06/14/21 at 11:30; Stop 06/14/21 at 15:26; Status DC Guaifenesin (Robitussin) 200 mg PRN Q4HRS PRN PO COUGH; Start 06/14/21 at 11:30 Lorazepam (Ativan) 0.5 mg PRN Q4HRS PRN PO ANXIETY / AGITATION; Start 06/14/21 at 11:30 Enoxaparin Sodium (Lovenox 40mg Syringe) 40 mg Q24H SQ Last administered on 06/16/21at 11:29; Start 06/14/21 at 11:30 Levofloxacin/ Dextrose 100 ml @ 100 mls/hr Q24H IV Last administered on 06/17/21at 10:43; Start 06/14/21 at 12:00 Vancomycin HCl (Vanco Per Pharmacy) 1 each PRN DAILY PRN MC SEE COMMENTS; Start 06/14/21 at 11:30; Status UNV Atorvastatin Calcium (Lipitor) 10 mg DAILY PO Last administered on 06/17/21at 08:16; Start 06/14/21 at 14:30 Doxazosin Mesylate (Cardura) 4 mg DAILY PO Last administered on 06/17/21at 08:17; Start 06/14/21 at 14:30 Acetaminophen/ Butalbital/ Caffeine (Fioricet) 1 tab PRN Q4HRS PRN PO MIGRAINE HEADACHE Last administered on 06/17/21at 10:42; Start 06/14/21 at 14:15 Pantoprazole Sodium (Protonix) 40 mg DAILYAC PO Last administered on 06/17/21at 05:11; Start 06/15/21 at 07:30 Albuterol/ Ipratropium (Duoneb) 3 ml PRN Q4HRS PRN NEB SHORTNESS OF BREATH; Start 06/14/21 at 15:30 Lactobacillus Rhamnosus (Culturelle) 1 cap BID PO Last administered on 06/17/21at 08:16; Start 06/15/21 at 13:00 Sodium Chloride (Saline Mist Nasal) 1 dilip PRN Q1HR PRN NS NASAL CONGESTION Last administered on 06/16/21at 13:18; Start 06/16/21 at 13:00 Active Scripts Active Reported Atorvastatin Calcium 10 Mg Tablet 10 Mg PO DAILY Erxjrg-Flreltho-Buph 50-300-40 (Butalb/Acetaminophen/Caffeine) 1 Each Capsule 1 Cap PO PRN Q4HRS PRN Doxazosin Mesylate 4 Mg Tablet 1 Tab PO DAILY Omeprazole 40 Mg Capsule. 1 Cap PO DAILY Vitals/I & O Vital Sign - Last 24 Hours 06/16/21 06/16/21 06/16/21 06/16/21 15:00 19:45 20:00 23:12 Temp 98.6 99.0 99.1 98.6 99.0 99.1 Pulse 75 81 65 Resp 24 20 20 B/P (MAP) 111/65 (80) 129/73 (91) 125/71 (89) Pulse Ox 96 95 97 O2 Delivery Room Air Room Air Room Air Room Air 06/17/21 06/17/21 06/17/21 03:08 07:00 08:17 Temp 98.2 98.1 98.2 98.1 Pulse 68 77 77 Resp 18 20 B/P (MAP) 125/73 (90) 136/76 (96) 136/76 Pulse Ox 96 95 O2 Delivery Room Air Room Air Intake and Output 06/16/21 06/16/21 06/17/21 15:00 23:00 07:00 Intake Total 600 ml 590 ml Balance 600 ml 590 ml Justicifation of Admission Dx: Justifications for Admission: Justification of Admission Dx: Yes Sepsis: Hypoxemia KARL JIMENEZ MD Jun 17, 2021 11:01
[2021-06-17] MEDS: ENOXAPARIN 40 MG/0.4 ML SYRINGE. SQ SCH (12:29)
--- NOTE | 2021-06-17 12:29 | PDOC3 ---
Discharge Summary Date of Admission: Jun 14, 2021 Date of Discharge: Jun 17, 2021 Follow-Up: 3-5 days Admitting Diagnosis comment: Chief Complaint Chief Complaint mpression: 1. Right upper lobe consolidation, concerning for pneumonia. Recommend follow- up to ensure resolution. Electronically signed by: Jose Centeno DO (06/14/2021 8:07 AM) [id number] DICTATED and SIGNED BY: JOSE CENTENO DO DATE: 06/14/21 [id number] VTE Prophylaxis Ordered VTE Prophylaxis Devices: Yes VTE Pharmacological Prophylaxi: Yes D/C CONDITION GOOD PROGNOSIS EXCELLENT WITH COMPLIANCE CONSULTS ID, PULMONARY , NEPHROLOGY F/U PCP IN 3- 7 DAYS DISCHARGE DX COMPLICATIONS NONE Assessment/Plan mpression: 1. Right upper lobe consolidation, c/w pneumonia possible gram neg, gram pos 2. acute hypoxis resp failure 3. COPD WITH ACUTE EXAC 4. Sepsis due to pneumonia 5. CIARA IMPROVING 6. HX TOBACCO ABUSE, 2019 cessation ADMITTED PLAN ADMIT ID CONSULT BLOOD CULT IV LEVAQUIN, d/c VANC due to ciara / Recommend continue levofloxacin, supportive care dvt prophylaxis 'duonebs qid prn q [address] Kidneys and Bladder Unremarkable . Renal function improving CR BETTER AT 1.5 d/c home 06-17 planned planning time 32 min ok to d/c on po levaquin D/W RN Justifications for Admission Justifications for Admission Other Justification History of Present Illness History of Present Illness Identification/Chief Complaint Chief Complaint sob, fever, cough onset today History of Present Illness History of Present Illness 66-year-old male presented to the emergency department with symptoms including fever, chills, fatigue, cough, nausea, vomiting, diarrhea for the past 24 hours which have been getting worse. 11 episodes of vomiting and diarrhea that has been nonbloody and nonbilious. noted fever since this morning that he has not treated at home. was vaccinated for COVID-19, states that he feels extremely nauseated, very thirsty and dehydrated. cxr c/w rul infiltrate some shortness of breath. stopped smoking last year denies chest pain, abdominal pain, urinary symptoms, recent trauma, or any other complaints. penicillin allergy, which he describes as syncope. Past Medical History Past Medical History Past Medical History Past Medical History: Pancreatitis Past Surgical History: Appendectomy, Tonsillectomy, Other Additional Past Surgical Histo: colonoscopy Smoking Status: stopped 2019 Alcohol Use: Rarely Drug Use: None FHX COPD Cardiovascular: No pertinent hx Pulmonary: No pertinent hx, Bronchitis, COPD Musculoskeletal: Weakness Renal/: No pertinent hx Endocrine: No pertinent hx Dermatology: No pertinent hx Past Surgical History Past Surgical History: Other Family History Family History: High Cholestrol, Hypertension Social History Smoke: Quit ALCOHOL: rare Drugs: None Current Problem List Problem List Problems Medical Problems: (1) Sepsis due to pneumonia Status: Acute Current Medications Current Medications Current Medications Acetaminophen (Tylenol) 1,000 mg 1X ONCE PO Last administered on 06/14/21at 08:09; Start 06/14/21 at 07:30; Stop 06/14/21 at 07:34; Status DC Sodium Chloride 1,000 ml @ 2,000 mls/hr 1X ONCE IV Last administered on 06/14/21at 08:10; Start 06/14/21 at 07:30; Stop 06/14/21 at 07:59; Status DC Levofloxacin/ Dextrose 150 ml @ 100 mls/hr 1X ONCE IV Last administered on 06/14/21at 08:10; Start 06/14/21 at 08:00; Stop 06/14/21 at 09:29 Vancomycin HCl (Vanco Per Pharmacy) 1 each PRN DAILY PRN MC SEE COMMENTS; Start 06/14/21 at 08:00 Vancomycin HCl 1.5 gm/Sodium Chloride 500 ml @ 250 mls/hr 1X ONCE IV ; Start 06/14/21 at 08:00; Stop 06/14/21 at 09:59 Ondansetron HCl (Zofran) 4 mg 1X ONCE IVP Last administered on 06/14/21at 08:07; Start 06/14/21 at 08:00; Stop 06/14/21 at 08:01; Status DC Active Scripts Active Voltaren (Diclofenac Sodium) 100 Gm Gel..gram. 1 Gm TP QID Reported No Known Medications Prior To Admisstion (Info) Each 1 Each MC Allergies Allergies: Coded Allergies: Penicillins (Unverified Allergy, Intermediate, 04/13/14) ROS General: YES: Chills, Fatigue, Malaise, Appetite PSYCHOLOGICAL ROS: No: Anxiety, Behavioral Disorder, Concentration difficultie, Decreased libido, Depression, Disorientation, Hallucinations, Hostility, Irritablity, Memory difficulties, Mood Swings, Obsessive thoughts, Physical abuse, Sexual abuse, Sleep disturbances, Suicidal ideation, Other Eyes: No Blurry vision, No Decreased vision, No Double vision, No Dry eyes, No Excessive tearing, No Eye Pain, No Itchy Eyes, No Loss of vision, No Phot ophobia, No Scotomata, No Uses contacts, No Uses glasses, No Other HEENT: No: Heacaches, Visual Changes, Hearing change, Nasal congestion, Nasal discharge, Oral lesions, Sinus pain, Sore Throat, Epistaxis, Sneezing, Snoring, Tinnitus, Vertigo, Vocal changes, Other ALLERGY AND IMMUNOLOGY: YES: Hives; No: Insect Bite Sensitivity, Itchy/Watery Eyes, Nasal Congestion, Post Nasal Drip, Seasonal Allergies, Other Hematological and Lymphatic: No: Bleeding Problems, Blood Clots, Blood Transfusions, Brusing, Night Sweats, Pallor, Swollen Lymph Nodes, Other ENDOCRINE: No: Breast Changes, Galactorrhea, Hair Pattern Changes, Hot Flashes, Malaise/lethargy, Mood Swings, Palpitations, Polydipsia/polyuria, Skin Changes, Temperature Intolerance, Unexpected Weight Changes, Other Breast: No New/Changing Breast Lumps, No Nipple changes, No Nipple discharge, No Other Respiratory: YES: Cough, Shortness of breath, SOB with excertion, Sputum Changes; No: Hemoptysis, Orthopnea, Pleuritic Pain, Stridor, Tachypnea, Wheezing, Other Cardiovascular: No Chest Pain, No Palpitations, No Orthopnea, No Paroxysmal Noc. Dyspnea, No Edema, No Lt Headedness, No Other Gastrointestinal: Yes Nausea, Yes Vomiting; No Abdominal Pain, No Diarrhea, No Constipation, No Melena, No Hematochezia, No Other Genitourinary: YES Frequency; No Dysuria, No Incontinence, No Hematuria, No Retention, No Discharge, No Urgency, No Pain, No Flank Pain, No Other, No , No , No , No , No , No , No Musculoskeletal: No Gait Disturbance, No Joint Pain, No Joint Stiffness, No Joint Swelling, No Muscle Pain, No Muscular Weakness, No Pain In:, No Swelling In:, No Other Neurological: No Behavorial Changes, No Bowel/Bladder ControlChng, No Confusion, No Dizziness, No Gait Disturbance, No Headaches, No Impaired Coord/balance, No Memory Loss, No Numbness/Tingling, No Seizures, No Speech Problems, No Tremors, No Visual Changes, No Weakness, No Other Skin: Yes Dry Skin; No Eczema, No Hair Changes, No Lumps, No Mole Changes, No Mottling, No Nail Changes, No Pruritus, No Rash, No Skin Lesion Changes, No Other, No Acne Vitals Vitals Vital Signs Date Time Temp Pulse Resp B/P (MAP) Pulse Ox O2 Delivery O2 Flow Rate FiO2 06/17/21 08:17 77 136/76 06/17/21 07:00 98.1 20 95 Room Air 98.1 06/16/21 11:00 2.5 Physical Exam Physical Exam GENERAL: Alert, oriented gentleman, not in distress. HEENT: NAD. NECK: Supple, no JVP, no lymphadenopathy. LUNGS: Clear. HEART: S1, S2 regular. ABDOMEN: Benign. EXTREMITIES: No edema, cyanosis. SKIN: Unremarkable. NEUROLOGIC: The patient is alert, awake, and appropriate. No focal neurologic deficit. General: Alert, Oriented X3, Cooperative, No acute distress Heart: Regular rate, Normal S1, Normal S2, No murmurs, Gallops Lungs: Crackles Abdomen: Normal bowel sounds, Soft, No tenderness, Other (obese) Extremities: No clubbing, No cyanosis, No edema, Normal pulses, No tenderness/swelling Skin: No significant lesion FINAL DIAGNOSIS Problems Medical Problems: (1) Sepsis due to pneumonia Status: Acute Brief Hospital Course Mr. Gerardo is a 66 old [sex] who presented with [PNEUMONIA, HYPOXIA ] CONDITION AT DISCHARGE: Improved Discharge Medications Current Medications Acetaminophen (Tylenol) 1,000 mg 1X ONCE PO Last administered on 06/14/21at 08:09; Start 06/14/21 at 07:30; Stop 06/14/21 at 07:34; Status DC Sodium Chloride 1,000 ml @ 2,000 mls/hr 1X ONCE IV Last administered on 06/14/21at 08:10; Start 06/14/21 at 07:30; Stop 06/14/21 at 07:59; Status DC Levofloxacin/ Dextrose 150 ml @ 100 mls/hr 1X ONCE IV Last administered on 06/14/21at 08:10; Start 06/14/21 at 08:00; Stop 06/14/21 at 09:29; Status DC Vancomycin HCl (Vanco Per Pharmacy) 1 each PRN DAILY PRN MC SEE COMMENTS; Start 06/14/21 at 08:00; Stop 06/14/21 at 11:35; Status DC Vancomycin HCl 1.5 gm/Sodium Chloride 500 ml @ 250 mls/hr 1X ONCE IV Last administered on 06/14/21at 11:11; Start 06/14/21 at 08:00; Stop 06/14/21 at 09:59; Status DC Ondansetron HCl (Zofran) 4 mg 1X ONCE IVP Last administered on 06/14/21at 08:07; Start 06/14/21 at 08:00; Stop 06/14/21 at 08:01; Status DC Ondansetron HCl (Zofran) 4 mg PRN Q8HRS PRN IVP NAUSEA/VOMITING; Start 06/14/21 at 09:15; Stop 06/15/21 at 09:14; Status DC Sodium Chloride 1,000 ml @ 125 mls/hr Q8H IV Last administered on 06/15/21at 01:27; Start 06/14/21 at 09:15; Stop 06/15/21 at 09:14; Status DC Acetaminophen (Tylenol) 650 mg PRN Q4HRS PRN PO FEVER > 100.3'F; Start 06/14/21 at 09:15; Stop 06/15/21 at 09:14; Status DC Sodium Chloride (Normal Saline Flush) 3 ml QSHIFT PRN IV AFTER MEDS AND BLOOD DRAWS; Start 06/14/21 at 11:30 Ondansetron HCl (Zofran) 4 mg PRN Q4HRS PRN IV NAUSEA/VOMITING; Start 06/14/21 at 11:30 Acetaminophen (Tylenol) 650 mg PRN Q4HRS PRN PO TEMP OVER 100.4F OR MILD PAIN; Start 06/14/21 at 11:30 Al Hydroxide/Mg Hydroxide (Mylanta Plus Xs) 30 ml PRN DAILY PRN PO HEARTBURN / GAS Last administered on 06/16/21at 20:04; Start 06/14/21 at 11:30 Sodium Monofluorophosphate (Fleet Adult) 133 ml PRN DAILY PRN DC CONSTIPATION; Start 06/14/21 at 11:30 Docusate Sodium (Colace) 100 mg PRN BID PRN PO HARD STOOLS; Start 06/14/21 at 11:30 Albuterol/ Ipratropium (Duoneb) 3 ml Q4H NEB ; Start 06/14/21 at 11:30; Stop 06/14/21 at 15:26; Status DC Guaifenesin (Robitussin) 200 mg PRN Q4HRS PRN PO COUGH; Start 06/14/21 at 11:30 Lorazepam (Ativan) 0.5 mg PRN Q4HRS PRN PO ANXIETY / AGITATION; Start 06/14/21 at 11:30 Enoxaparin Sodium (Lovenox 40mg Syringe) 40 mg Q24H SQ Last administered on 06/16/21at 11:29; Start 06/14/21 at 11:30 Levofloxacin/ Dextrose 100 ml @ 100 mls/hr Q24H IV Last administered on 06/17/21at 10:43; Start 06/14/21 at 12:00 Vancomycin HCl (Vanco Per Pharmacy) 1 each PRN DAILY PRN MC SEE COMMENTS; Start 06/14/21 at 11:30; Status UNV Atorvastatin Calcium (Lipitor) 10 mg DAILY PO Last administered on 06/17/21at 08:16; Start 06/14/21 at 14:30 Doxazosin Mesylate (Cardura) 4 mg DAILY PO Last administered on 06/17/21at 08:17; Start 06/14/21 at 14:30 Acetaminophen/ Butalbital/ Caffeine (Fioricet) 1 tab PRN Q4HRS PRN PO MIGRAINE HEADACHE Last administered on 06/17/21at 10:42; Start 06/14/21 at 14:15 Pantoprazole Sodium (Protonix) 40 mg DAILYAC PO Last administered on 06/17/21at 05:11; Start 06/15/21 at 07:30 Albuterol/ Ipratropium (Duoneb) 3 ml PRN Q4HRS PRN NEB SHORTNESS OF BREATH; Start 06/14/21 at 15:30 Lactobacillus Rhamnosus (Culturelle) 1 cap BID PO Last administered on 06/17/21at 08:16; Start 06/15/21 at 13:00 Sodium Chloride (Saline Mist Nasal) 1 dilip PRN Q1HR PRN NS NASAL CONGESTION Last administered on 06/16/21at 13:18; Start 06/16/21 at 13:00 Active Scripts Active Reported Atorvastatin Calcium 10 Mg Tablet 10 Mg PO DAILY [id number] 50-300-40 (Butalb/Acetaminophen/Caffeine) 1 Each Capsule 1 Cap PO PRN Q4HRS PRN Doxazosin Mesylate 4 Mg Tablet 1 Tab PO DAILY Omeprazole 40 Mg Capsule.dr 1 Cap PO DAILY Vital Signs Vital Signs Date Time Temp Pulse Resp B/P (MAP) Pulse Ox O2 Delivery O2 Flow Rate FiO2 06/17/21 11:00 98.0 72 18 125/70 (88) 96 Room Air 98.0 06/16/21 11:00 2.5 Labs Laboratory Tests Test 06/16/21 08:11 06/17/21 08:23 Sodium Level 140 mmol/L (136-145) 142 mmol/L (136-145) Potassium Level 4.0 mmol/L (3.5-5.1) 4.2 mmol/L (3.5-5.1) Chloride Level 107 mmol/L (98-107) 106 mmol/L (98-107) Carbon Dioxide Level 22 mmol/L (21-32) 29 mmol/L (21-32) Anion Gap 11 (6-14) 7 (6-14) Blood Urea Nitrogen 18 mg/dL (8-26) 18 mg/dL (8-26) Creatinine 1.4 mg/dL (0.7-1.3) 1.4 mg/dL (0.7-1.3) Estimated GFR (Cockcroft-Gault) 50.4 50.4 Glucose Level 101 mg/dL (70-99) 101 mg/dL (70-99) Calcium Level 9.1 mg/dL (8.5-10.1) 9.2 mg/dL (8.5-10.1) White Blood Count 6.0 x10^3/uL (4.0-11.0) Red Blood Count 4.49 x10^6/uL (4.30-5.70) Hemoglobin 15.0 g/dL (13.0-17.5) Hematocrit 43.3 % (39.0-53.0) Mean Corpuscular Volume 97 fL (79-100) Mean Corpuscular Hemoglobin 34 pg (25-35) Mean Corpuscular Hemoglobin Concent 35 g/dL (31-37) Red Cell Distribution Width 13.6 % (11.5-14.5) Platelet Count 200 x10^3/uL (140-400) Neutrophils (%) (Auto) 70 % (31-73) Lymphocytes (%) (Auto) 18 % (24-48) Monocytes (%) (Auto) 10 % (0-9) Eosinophils (%) (Auto) 1 % (0-3) Basophils (%) (Auto) 0 % (0-3) Neutrophils # (Auto) 4.2 x10^3/uL (1.8-7.7) Lymphocytes # (Auto) 1.1 x10^3/uL (1.0-4.8) Monocytes # (Auto) 0.6 x10^3/uL (0.0-1.1) Eosinophils # (Auto) 0.1 x10^3/uL (0.0-0.7) Basophils # (Auto) 0.0 x10^3/uL (0.0-0.2) Laboratory Tests Test 06/17/21 08:23 White Blood Count 6.0 x10^3/uL (4.0-11.0) Red Blood Count 4.49 x10^6/uL (4.30-5.70) Hemoglobin 15.0 g/dL (13.0-17.5) Hematocrit 43.3 % (39.0-53.0) Mean Corpuscular Volume 97 fL (79-100) Mean Corpuscular Hemoglobin 34 pg (25-35) Mean Corpuscular Hemoglobin Concent 35 g/dL (31-37) Red Cell Distribution Width 13.6 % (11.5-14.5) Platelet Count 200 x10^3/uL (140-400) Neutrophils (%) (Auto) 70 % (31-73) Lymphocytes (%) (Auto) 18 % (24-48) Monocytes (%) (Auto) 10 % (0-9) Eosinophils (%) (Auto) 1 % (0-3) Basophils (%) (Auto) 0 % (0-3) Neutrophils # (Auto) 4.2 x10^3/uL (1.8-7.7) Lymphocytes # (Auto) 1.1 x10^3/uL (1.0-4.8) Monocytes # (Auto) 0.6 x10^3/uL (0.0-1.1) Eosinophils # (Auto) 0.1 x10^3/uL (0.0-0.7) Basophils # (Auto) 0.0 x10^3/uL (0.0-0.2) Sodium Level 142 mmol/L (136-145) Potassium Level 4.2 mmol/L (3.5-5.1) Chloride Level 106 mmol/L (98-107) Carbon Dioxide Level 29 mmol/L (21-32) Anion Gap 7 (6-14) Blood Urea Nitrogen 18 mg/dL (8-26) Creatinine 1.4 mg/dL (0.7-1.3) Estimated GFR (Cockcroft-Gault) 50.4 Glucose Level 101 mg/dL (70-99) Calcium Level 9.2 mg/dL (8.5-10.1) Allergies Allergies Coded Allergies Type Severity Reaction Last Updated Verified Penicillins Allergy Intermediate 04/13/14 No Justicifation of Admission Dx: Justifications for Admission: Justification of Admission Dx: Yes Sepsis: Hypoxemia KARL JIMENEZ MD Jun 17, 2021 12:29
[2021-06-17] MEDS ORDERED: LEVO750T5 PO (12:34)
[2021-06-17] MEDS ORDERED: IPRA3AMP29 NEB (12:34)
[2021-06-17] MEDS ORDERED: MAG30ORA2 PO (12:34)
[2021-06-17] MEDS ORDERED: LACT1CAP19 PO (12:34)
[2021-06-17] MEDS ORDERED: DOCU-109 PO (12:34)
[2021-06-17] MEDS ORDERED: GUAI100L12 PO (12:34)
[2021-06-17] MEDS ORDERED: ACET325T21 PO (12:34)
--- NOTE | 2021-06-17 12:36 | DISCH ---
DISCHARGE INSTRUCTIONS Condition on Discharge Condition on Discharge: Stable Activity After Discharge Activity Instructions for Disc: Activity as tolerated Lifting Instructions after Dis: No heavy lifting Driving Instructions after Dis: Do not drive today Weight Bearing Status after Di: As tolerated Diet after Discharge Diet after Discharge: Cardiac, Regular Liquid Texture: Thin Liquid Checks after Discharge Checks after discharge: Check blood press - daily Contacting the DRGustavo after DC Call your doctor for: Concerns you may have Follow-Up Follow up with: PCP IN 3-7 DAYS Treatment/Equipment after DC Adaptive Equipment Issued: None Discharge Respiratory Equipmen: Nebulizer KARL JIMENEZ MD Jun 17, 2021 12:36
--- NOTE | 2021-06-17 13:19 | PDOC ---
Infectious Disease Note Subjective Subjective Pt is feeling much better remains afebrile Vital Sign Vital Signs Vital Signs Date Time Temp Pulse Resp B/P (MAP) Pulse Ox O2 Delivery O2 Flow Rate FiO2 06/17/21 11:00 98.0 72 18 125/70 (88) 96 Room Air 98.0 06/16/21 11:00 2.5 Physical Exam PHYSICAL EXAM GENERAL: Alert, oriented gentleman, not in distress. HEENT: NAD. NECK: Supple, no JVP, no lymphadenopathy. LUNGS: Clear. HEART: S1, S2 regular. ABDOMEN: Benign. EXTREMITIES: No edema, cyanosis. SKIN: Unremarkable. NEUROLOGIC: The patient is alert, awake, and appropriate. No focal neurologic deficit. Labs Lab Laboratory Tests Test 06/17/21 08:23 White Blood Count 6.0 x10^3/uL (4.0-11.0) Red Blood Count 4.49 x10^6/uL (4.30-5.70) Hemoglobin 15.0 g/dL (13.0-17.5) Hematocrit 43.3 % (39.0-53.0) Mean Corpuscular Volume 97 fL (79-100) Mean Corpuscular Hemoglobin 34 pg (25-35) Mean Corpuscular Hemoglobin Concent 35 g/dL (31-37) Red Cell Distribution Width 13.6 % (11.5-14.5) Platelet Count 200 x10^3/uL (140-400) Neutrophils (%) (Auto) 70 % (31-73) Lymphocytes (%) (Auto) 18 % (24-48) Monocytes (%) (Auto) 10 % (0-9) Eosinophils (%) (Auto) 1 % (0-3) Basophils (%) (Auto) 0 % (0-3) Neutrophils # (Auto) 4.2 x10^3/uL (1.8-7.7) Lymphocytes # (Auto) 1.1 x10^3/uL (1.0-4.8) Monocytes # (Auto) 0.6 x10^3/uL (0.0-1.1) Eosinophils # (Auto) 0.1 x10^3/uL (0.0-0.7) Basophils # (Auto) 0.0 x10^3/uL (0.0-0.2) Sodium Level 142 mmol/L (136-145) Potassium Level 4.2 mmol/L (3.5-5.1) Chloride Level 106 mmol/L (98-107) Carbon Dioxide Level 29 mmol/L (21-32) Anion Gap 7 (6-14) Blood Urea Nitrogen 18 mg/dL (8-26) Creatinine 1.4 mg/dL (0.7-1.3) Estimated GFR (Cockcroft-Gault) 50.4 Glucose Level 101 mg/dL (70-99) Calcium Level 9.2 mg/dL (8.5-10.1) Micro Microbiology 06/14/21 Blood Culture - Preliminary, Resulted NO GROWTH AFTER 2 DAYS Objective Assessment 1. Aspiration pneumonia. 2. Fever. 3. Leukocytosis. 4. Nausea, vomiting, diarrhea/gastroenteritis. 5. Chronic obstructive pulmonary disease. Plan Plan of Care continue levofloxacin, supportive care ok to d/c on po FARTUN Mukherjee MD Jun 17, 2021 13:19
--- NOTE | 2021-06-17 16:56 | NUR ---
Discharge Note: MARIA ELENA ADAMES [address] Discharge instructions and discharge home medications reviewed with the patient and a copy given. All questions have been answered and understanding verbalized. The following instructions and handouts were given: Prescription for nebulizer called to the patient's pharmacy, [facility] Home meds as directed. Follow up with PCP in 3 to 7 days. Seek emergent care if with severe dyspnea, chest pain. Discontinued lines and drains: peripheral IV intact, patient tolerated removal Patient discharged to home with self care on room air via wheelchair at 1445.
== END 2021-06-17 14:45 | disposition home or self-care (01) | DRG 871 ==
LOC: ER 07:15 → 5 NORTH 08:27
PROVIDERS: ADMIT Family Medicine; ATTEND Family Medicine
DX: A41.9 Sepsis, unspecified organism (principal); J96.01 Acute respiratory failure with hypoxia; J69.0 Pneumonitis due to inhalation of food and vomit; J15.6 Pneumonia due to other Gram-negative bacteria; J15.9 Unspecified bacterial pneumonia; J44.0 Chronic obstructive pulmonary disease with (acute) lower respiratory infection; J44.1 Chronic obstructive pulmonary disease with (acute) exacerbation; N17.9 Acute kidney failure, unspecified; E86.0 Dehydration; G43.909 Migraine, unspecified, not intractable, without status migrainosus; K21.9 Gastro-esophageal reflux disease without esophagitis; K52.9 Noninfective gastroenteritis and colitis, unspecified; N18.9 Chronic kidney disease, unspecified; Z20.822 Contact with and (suspected) exposure to COVID-19; Z82.49 Family history of ischemic heart disease and other diseases of the circulatory system; Z82.5 Family history of asthma and other chronic lower respiratory diseases; Z87.891 Personal history of nicotine dependence; Z88.0 Allergy status to penicillin; Z90.49 Acquired absence of other specified parts of digestive tract; R94.5 Abnormal results of liver function studies
CPT/HCPCS: 36415; 71045; 71250; 74176; 80048; 80053; 81001; 83605; 83690; 85007; 85025; 87040; 87426; 87804; 93005; 96365; 96366; 96375; J1650; J1956; J2405; J3370; J7030; J7040; U0003; U0005; 97535-GO; 99285-25; G0378